=== PATIENT | male | born 1970 | race Caucasian/White ===

== ENCOUNTER → 2022-07-10 | Outpatient (CLI) | payer SELFPAY, OTHER ==
--- NOTE | 2022-07-10 13:55 | ECHODONC_ITS ---
Reason For Study: Diffuse large B-cell lymphoma Procedure This was a 2D Doppler, Color Flow transthoracic echocardiogram. Myocardial strain analysis was performed in this exam to aid in the assessment of cardiac function. Exam performed in department. Left Ventricle Normal size and thickness. Left ventricular systolic function is hyperdynamic. The left ventricular ejection fraction is 70 %. Normal diastology for age. The global longitudinal strain = -20.6 % (normal). Right Ventricle Normal right ventricle. Atria The left and right atria are normal. Mitral Valve The mitral valve is structurally normal. No prolapse or stenosis seen. Tricuspid Valve Trivial tricuspid valve insufficiency. Unable to estimate RV systolic pressure due to insufficient tricuspid regurgitant envelope. Aortic Valve Normal aortic valve. Pulmonic Valve The pulmonic valve is not well visualized. Great Vessels Normal sized aortic root. Pericardium/Pleural No pericardial effusion. MMode/2D Measurements & Calculations LVIDd: 3.9 cm IVSd: 0.97 cm Ao root diam: 3.5 cm LVIDs: 2.7 cm LVPWd: 1.1 cm RVDd: 3.6 cm FS: 32.2 % LAV(MOD-bp): 67.0 ml LA A4 area: 18.1 cm2 LA dimension(2D): 3.5 cm LAV(MOD-bp) Indexed: 31.8 ml/m2 LAV(MOD-sp2): 59.3 ml LAV(MOD-sp4): 59.0 ml RA A4 area: 9.6 cm2 Time Measurements MV dec time: 0.19 sec Doppler Measurements & Calculations MV E max kishan: 94.1 cm/sec Lat Peak E' Kishan: 8.5 cm/sec Med Peak E' Kishan: 10.5 cm/sec MV A max kishan: 83.1 cm/sec E/E' lat: 11.0 E/E' med: 9.0 MV E/A: 1.1 MV dec slope: 490.2 cm/sec2 Ao V2 max: 167.7 cm/sec LV V1 max: 141.7 cm/sec Ao max P.3 mmHg LV V1 max P.0 mmHg Ao V2 mean: 118.4 cm/sec LV V1 mean P.3 mmHg Ao mean P.4 mmHg LV V1 mean: 97.9 cm/sec Ao V2 VTI: 30.3 cm LV V1 VTI: 25.4 cm AV (velocity ratio): 0.84 PA V2 max: 121.4 cm/sec ECHO/ONC Echo Complete Interpretation Summary The left ventricular ejection fraction is 70 %. The global longitudinal strain = -20.6 % (normal). Ordering Physician: Jacek Esteves Referring Physician: Cricket Babcock Performed By: Concetta Crowley RDCS, RVT
== END | disposition home or self-care (01) ==
PROVIDERS: PCP Family Medicine; Referring Provider Internal Medicine Hematology & Oncology; Visit Provider Internal Medicine Hematology & Oncology
DX: C83.33 Diffuse large B-cell lymphoma, intra-abdominal lymph nodes (principal)
CPT/HCPCS: 93306; 93356

== ENCOUNTER → 2022-07-23 | Outpatient (CLI) | payer OTHER, SELFPAY | END | disposition home or self-care (01) | LOC: LABSPEC 17:31 | PROVIDERS: PCP Family Medicine; Visit Provider Pharmacist | DX: C83.33 Diffuse large B-cell lymphoma, intra-abdominal lymph nodes (principal) | CPT/HCPCS: 86850; 86900; 86901; 86920; 86922; P9016 ==

== ENCOUNTER → 2022-07-24 | Outpatient (CLI) | payer OTHER, SELFPAY ==
[2022-07-24 11:36] VITALS: BP 125/70; PULSE 96; RESP 16; TEMP 36.3; O2SAT 100; BMI 25.7
[2022-07-24 12:26] VITALS: BP 121/71; PULSE 87; RESP 16; TEMP 36.7
[2022-07-24 13:26] VITALS: BP 118/84; PULSE 91; RESP 16; TEMP 36.6
[2022-07-24] MEDS: 0.9% NaCl Peripheral Flush Adult/Peds IV (14:09)
[2022-07-24 14:12] VITALS: BP 126/76; PULSE 89; RESP 16; TEMP 36.6
== END | disposition home or self-care (01) ==
LOC: MEDOUTP 11:11
PROVIDERS: PCP Family Medicine; Referring Provider Internal Medicine Hematology & Oncology; Visit Provider Internal Medicine Hematology & Oncology
DX: C83.33 Diffuse large B-cell lymphoma, intra-abdominal lymph nodes (principal)
CPT/HCPCS: 36430; 86850; 86900; 86901; 86920; 86922; J7040; P9016; A4216

== ENCOUNTER 2022-09-25 13:51 | Inpatient (IN) | payer OTHER, SELFPAY ==
[2022-09-25] VITALS (40 sets, daily range): BP systolic 80–124; BP diastolic 44–83; PULSE 107–158; RESP 14–38; TEMP 37.9–40.5; O2SAT 85–98; BMI 27.6; BMI 27.7
--- NOTE | 2022-09-25 14:10 | RAD_ITS ---
EXAM: XR CHEST, 1 VIEW CLINICAL INDICATION: fever TECHNIQUE: Frontal view of the chest. COMPARISON: No relevant prior studies available. FINDINGS: LUNGS AND PLEURAL SPACES: There is bilateral basilar infiltrate / atelectasis. No pneumothorax. No effusion. HEART: Unremarkable. Cardiac silhouette not enlarged. MEDIASTINUM: Central airways and mediastinal contour are unremarkable. BONES/JOINTS: Unremarkable. SOFT TISSUES: Unremarkable. TUBES, LINES AND DEVICES: There is a left Port-A-Cath and/or mediport in place. The tip is in the superior vena caval - atrial junction. RAD/Chest 1 View (Portable) IMPRESSION: There is bilateral basilar infiltrate / atelectasis. Electronically Signed: Rohan Gilliam MD at 15:09 EDT ,
--- NOTE | 2022-09-25 14:10 | EKG12_ITS ---
Test Reason : GENERAL Blood Pressure : / mmHG Vent. Rate : 150 BPM Atrial Rate : 150 BPM P-R Int : 122 ms QRS Dur : 074 ms QT Int : 262 ms P-R-T Axes : 057 052 041 degrees QTc Int : 413 ms Sinus tachycardia Nonspecific ST and T wave abnormality Abnormal ECG Confirmed by IVONNE GALARZA, ANTONY ([id number]), website/blog editor SAMANTHA FOOTE ([id number]) on 09/29/2022 10:14:27 AM Referred By: Confirmed By:ANTONY CORONADO MD
--- NOTE | 2022-09-25 14:12 | CT_ITS ---
STUDY: CT Abdomen And Pelvis W/ Contrast Injection 09/25/2022 4:02 PM REASON FOR EXAM: Male, 52 years old. HX LYMPHOMA,FEVER,N/V/D pain diarrhea, pain Individualized dose optimization techniques were used for this CT. COMPARISON: None. TECHNIQUE: CT Abdomen And Pelvis W/ Contrast Injection IV 100mL Isovue-300 FINDINGS: There are atherosclerotic calcifications of visualized coronary arteries. Diffuse lower lobe pneumonia. There is hepatomegaly with diffuse hepatic enlargement. There is non-visualization of the gallbladder, which may be secondary to either contraction or a prior cholecystectomy. Normal spleen. Normal pancreas. Normal bilateral adrenal glands. No acute findings of the right kidney. Non obstructive 2 mm left renal parenchymal stones. Normal visualized stomach. There are multiple colonic diverticula consistent with diverticulosis. There is non-visualization of the appendix. There are calcifications of the abdominal aorta. This is consistent for atherosclerotic disease. There is NO abdominal aortic aneurysm. Vascular workup can be obtained based on clinical correlation. Normal inferior vena cava. Subcentimeter mesenteric lymph nodes. In a triangular pattern along the course of a branch of the left SMA, there is a soft tissue mass measuring 10.5 x 5.9cm. This is likely related to the patient''s known history of lymphoma. This mass abuts the small bowel where there is overlying wall thickening and inflammation. Neoplastic invasion is not excluded. This is causing a partial small bowel obstruction. There is a Stallings balloon catheter in the urinary bladder. Normal abdominal wall. There are diffuse degenerative changes of the visualized lumbar spine. CT/Abdomen/Pelvis W IV Cont ONLY IMPRESSION: (NOT LISTED IN ORDER OF SIGNIFICANCE) In a triangular pattern along the course of a branch of the left SMA, there is a soft tissue mass measuring 10.5 x 5.9cm. This is likely related to the patient''s known history of lymphoma. This mass abuts the small bowel where there is overlying wall thickening and inflammation. Neoplastic invasion is not excluded. This is causing a partial small bowel obstruction. Diffuse lower lobe pneumonia. Non obstructive 2 mm left renal parenchymal stones. There is hepatomegaly with diffuse hepatic enlargement. Other findings as above. Electronically Signed: Rohan Gilliam MD at 16:09 EDT ,
--- NOTE | 2022-09-25 14:13 | EX.ED.DYSGE1 ---
HPI History of Present Illness Chief Complaint: Nausea/Vomiting/Diarrhea Narrative Narrative: 52-year-old male past medical history of lymphoma diagnosed in June or July, few months ago, finished his fourth round of chemotherapy last week. She sees Dr. Jacek Esteves has his oncologist. They present today because he had a fever. He has been weak and dehydrated all week with multiple episodes of nonbloody diarrhea. He complains of diffuse abdominal pain as well. His states that he had 1 episode of vomiting today and they were unsure if he had aspirated because he was so weak. His emesis was nonbloody, however he developed a fever today. It was as high as 102. They state that they were told that if he ever develops a fever that they should come straight to the emergency department so he was not given any antipyretics. Patient complains of generalized weakness, abdominal pain, and diarrhea along with a fever. [facility] Medical History (Updated 09/25/22 @ 21:26 by Basim Torres MD) Lymphoma Home Medications acyclovir 400 mg tablet 400 mg PO BID 09/25/22 [History Last Taken Unknown] allopurinol 300 mg tablet 300 mg PO DAILY 09/25/22 [History Last Taken Unknown] dexamethasone 4 mg tablet 4 mg PO DAILY 09/25/22 [History Last Taken Unknown] olanzapine 10 mg tablet 10 mg PO QHS 09/25/22 [History Last Taken Unknown] prochlorperazine maleate 10 mg tablet 10 mg PO Q6H PRN Nausea 09/25/22 [History Last Taken Unknown] Allergy/AdvReac Type Severity Reaction Status Date / Time No Known Allergies Allergy Verified 07/24/22 11:34 Social History Smoking Status: Never smoker ROS ROS ED ROS Narrative Constitutional: Positive fever, no chills. Generalized weakness. HEENT: No sore throat. No neck pain. No loss of vision. No rhinorrhea. Cardiovascular: No chest pain. No palpitations. No pedal edema. Respiratory: No cough, no shortness of breath. Abdominal: Diffuse abdominal pain. Nausea and vomiting today. 1 week of diarrhea, nonbloody. Genitourinary: No dysuria. No hematuria. Musculoskeletal: No myalgias. No arthralgias. Neurologic: No headaches. No dizziness. No lightheadedness. Skin: No rash. No change in color. Psychiatric: No depression. No anxiety. EXAM Physical Exam Narrative Exam Narrative: Temperature 103.6 ?F, vital signs noted. HEENT: Normocephalic. Atraumatic. PERRL, EOMI. Neck soft and supple. No point tenderness or step off. Tacky to dry mucous membranes. Cardiovascular: Positive tachycardia. No murmurs, rubs, or gallops appreciated. Respiratory: No tachypnea. Lungs clear to auscultation bilaterally. Gastrointestinal: Abdomen soft, diffuse tenderness to palpation with normoactive bowel sounds. No rebound or guarding. Neurological: Awake. Alert. Nonfocal, nonlateralizing. Skin: No rash. Normal color. No pallor. Musculoskeletal: No pedal edema. Full range of motion extremities. Const Vital Signs: 09/25/22 13:53 09/25/22 14:37 09/25/22 14:47 Temperature 103.6 F H 104.1 F H Temperature Source Temporal Oral Pulse Rate 158 H 147 H Respiratory Rate 14 18 Blood Pressure 93/44 L 108/61 Blood Pressure Mean 60 76 Blood Pressure Source Pulse Ox 98 86 90 Oxygen Delivery Method Room Air Room Air Nasal Cannula Oxygen Flow Rate (L/min) 4 09/25/22 14:53 09/25/22 15:18 09/25/22 16:00 Temperature 104.9 F H 104.8 F H 104 F H Temperature Source Core Core Core Pulse Rate 130 H 125 H 128 H Respiratory Rate 24 H 21 H 31 H Blood Pressure 114/53 L 118/73 111/72 Blood Pressure Mean 73 88 85 Blood Pressure Source Pulse Ox 94 98 95 Oxygen Delivery Method Nasal Cannula Nasal Cannula Nasal Cannula Oxygen Flow Rate (L/min) 4 4 2 09/25/22 16:25 09/25/22 17:00 09/25/22 17:16 Temperature 103.8 F H 103.5 F H 103.2 F H Temperature Source Core Core Core Pulse Rate 129 H Respiratory Rate 38 H Blood Pressure 91/51 L Blood Pressure Mean 64 Blood Pressure Source Pulse Ox 93 86 Oxygen Delivery Method Room Air Nasal Cannula Oxygen Flow Rate (L/min) 2 09/25/22 17:18 09/25/22 17:21 09/25/22 17:56 Temperature 103.2 F H Temperature Source Core Pulse Rate 134 H Respiratory Rate 24 H Blood Pressure 90/52 L Blood Pressure Mean 64 Blood Pressure Source Pulse Ox 88 91 94 Oxygen Delivery Method Nasal Cannula Nasal Cannula Nasal Cannula Oxygen Flow Rate (L/min) 4 5 5 09/25/22 18:00 09/25/22 18:14 09/25/22 18:23 Temperature 102.8 F H 102.7 F H Temperature Source Core Core Pulse Rate 130 H 127 H 125 H Respiratory Rate 24 H 25 H 26 H Blood Pressure 80/58 L 87/58 L 80/53 L Blood Pressure Mean 65 67 62 Blood Pressure Source Monitor Monitor Pulse Ox 94 92 91 Oxygen Delivery Method Nasal Cannula Nasal Cannula Nasal Cannula Oxygen Flow Rate (L/min) 5 4 4 09/25/22 18:27 09/25/22 18:30 09/25/22 18:42 Temperature 102.7 F H 102.7 F H 102.6 F H Temperature Source Core Core Core Pulse Rate 125 H 123 H 119 H Respiratory Rate 26 H 26 H 27 H Blood Pressure 86/59 L 84/63 L 90/66 Blood Pressure Mean 68 70 74 Blood Pressure Source Monitor Pulse Ox 93 92 93 Oxygen Delivery Method Nasal Cannula Nasal Cannula Nasal Cannula Oxygen Flow Rate (L/min) 5 5 09/25/22 18:45 Temperature Temperature Source Pulse Rate Respiratory Rate Blood Pressure 94/67 Blood Pressure Mean 76 Blood Pressure Source Pulse Ox Oxygen Delivery Method Oxygen Flow Rate (L/min) Sepsis Attestation Sepsis Alert: Yes Sepsis Attestation: Agree w/Sepsis Date exam was performed: 09/25/22 Time exam was performed: 15:25 Possible Source of Sepsis: Pulmonary and GI tract/intra-abdominal Sepsis Organ Dysfunction Criteria Present: SBP decrease of more than 40 mmHg and Lactic Acid > 2 mmol/L Fluid Resuscitation Fluid resuscitation indicated?: Yes Fluid Resuscitation ordered: 30 ml/kg fluid bolus ordered Amount of fluid ordered: 3,000 Sepsis Note Date exam was performed: 09/25/22 Sepsis Attestation: Sepsis re-evaluation was performed Response to fluids: Non Fluid responsive hypotension (Initially was fluid responsive) and Vasopressors started MDM MDM MDM Narrative Medical decision making narrative: Given the patient's fever and tachycardia, concern is for aspiration pneumonia, and he may have a neutropenic fever. It may be an intra abdominal source of infection for his sepsis as he is having diarrhea and diffuse abdominal pain. He was started on IV fluids immediately as he was mildly hypotensive at 93/44. Sepsis work-up was pursued. I do feel CT imaging of the abdomen is indicated, whether or not it could be with contrast will be dependent on his creatinine and GFR. He will be administered Tylenol for his fever. Blood cultures will be obtained. Initially, he was given Tylenol for his fever. His blood pressure did improve after first bolus of IV fluids. I reviewed his laboratory work and he is severely neutropenic at 0.1 WBC count, hemoglobin stable at 11.1, hematocrit 33.7. Platelet count slightly low at 145 which I think is secondary to chemotherapy. Coagulation studies are negative with an INR of 1.0 and a PTT of 26. Electrolyte panel shows him to be dehydrated with a BUN of 25 and a creatinine of 1.47. I do feel this may be more of an acute kidney injury but there are no prior labs with which to compare. AST and ALT are normal. Lactic acid is elevated at 5.0. Urinalysis is negative for infection. Chest x-ray interpreted by myself shows bilateral atelectasis versus pneumonia. I do feel that this may be a source of his infection, while it may be aspiration, with his fever, he will be started on sepsis antibiotics in the form of vancomycin and Zosyn. Patient was given a total of 30 mL/kg of IV fluids. He was given additional IV fluids and had tenuous blood pressure, dipping as low as the 80s systolic, but he was still mentating. He was sitting up and stating that he felt improved. He will be started on Levophed as he has been given the maximal amount of IV fluids. I reviewed the CT report for the CT of the abdomen pelvis which did show a soft tissue mass near the SMA that was mildly compressing a section of small bowel and may have a neoplastic infiltration into the small bowel causing partial small bowel obstruction. I discussed patient initially with Dr. Nowak with hospitalist medicine. I also discussed patient with Dr. Vargas with general surgery who states that no surgical intervention was needed at this time emergently as the patient only has a partial bowel obstruction and there is material passing the small bowel. Patient will be admitted to the ICU for septic shock. He is in guarded condition. Critical care time is 37 minutes. Disposition is admit. History & Record Review Discussion w/independent historian: Patient and Family Additional record(s) reviewed:: Prior outpatient record Lab Data Attestation: I reviewed the patient's lab results. Labs: Laboratory Results - last 24 hr 09/25/22 09/25/22 09/25/22 14:30 14:30 14:30 WBC 0.1 L* RBC 3.97 L Hgb 11.1 L Hct 33.7 L MCV 84.9 MCH 28.0 MCHC 32.9 RDW Std Deviation 55.5 H RDW Coeff of Olesya 17.9 H Plt Count 145 L MPV 10.2 Immature Gran % (Auto) 16.700 H Neut % (Auto) 16.7 L Lymph % (Auto) 58.3 H [place] % (Auto) 8.3 Eos % (Auto) 0.0 Baso % (Auto) 0.0 Absolute Neuts (auto) 0.0 L Absolute Lymphs (auto) 0.07 L Nucleated RBC % 0 Differential Comment COMMENT Diff Path Review May foll PT 13.7 INR 1.0 APTT 26.0 Sodium 138 Potassium 3.8 Chloride 107 Carbon Dioxide 22.0 Anion Gap 9 BUN 25 H Creatinine 1.47 H Estim Creat Clear Calc 66.43 Est GFR (MDRD) Af Amer 65 Est GFR (MDRD) Non-Af 53 L BUN/Creatinine Ratio 17.0 Glucose 111 H Lactic Acid Calcium 8.8 Total Bilirubin 2.00 H AST 21 ALT 29 Alkaline Phosphatase 82 Troponin I High Sens 57 Total Protein 6.5 Albumin 3.3 Globulin 3.2 Albumin/Globulin Ratio 1.0 Urine Color Urine Clarity Urine pH Ur Specific [place]ard Urine Protein Urine Glucose (UA) Urine Ketones Urine Occult Blood Urine Nitrite Urine Bilirubin Urine Urobilinogen Ur Leukocyte Esterase Urine RBC Urine WBC Ur Squamous Epith Cells Urine Bacteria Urine Mucus 09/25/22 09/25/22 14:30 14:45 WBC RBC Hgb Hct MCV MCH MCHC RDW Std Deviation RDW Coeff of Olesya Plt Count MPV Immature Gran % (Auto) Neut % (Auto) Lymph % (Auto) [place] % (Auto) Eos % (Auto) Baso % (Auto) Absolute Neuts (auto) Absolute Lymphs (auto) Nucleated RBC % Differential Comment Diff Path Review PT INR APTT Sodium Potassium Chloride Carbon Dioxide Anion Gap BUN Creatinine Estim Creat Clear Calc Est GFR (MDRD) Af Amer Est GFR (MDRD) Non-Af BUN/Creatinine Ratio Glucose Lactic Acid 5.0 H* Calcium Total Bilirubin AST ALT Alkaline Phosphatase Troponin I High Sens Total Protein Albumin Globulin Albumin/Globulin Ratio Urine Color Yellow Urine Clarity Clear Urine pH 5.0 Ur Specific Maynard 1.020 Urine Protein 30 H Urine Glucose (UA) Normal Urine Ketones 5 H Urine Occult Blood 10 H Urine Nitrite Negative Urine Bilirubin Negative Urine Urobilinogen Normal Ur Leukocyte Esterase 25 H Urine RBC 0-5 SEEN Urine WBC 0-5 SEEN Ur Squamous Epith Cells 0-5 SEEN Urine Bacteria 0 SEEN Urine Mucus 0 SEEN Radiography Diagnostic Testing: Clinical Impression(s) from Imaging Studies Chest X-Ray 09/25/22 14:10 IMPRESSION: There is bilateral basilar infiltrate / atelectasis. Electronically Signed: Rohan Gilliam MD at 15:09 EDT , Abdomen/Pelvis CT 09/25/22 14:12 IMPRESSION: (NOT LISTED IN ORDER OF SIGNIFICANCE) In a triangular pattern along the course of a branch of the left SMA, there is a soft tissue mass measuring 10.5 x 5.9cm. This is likely related to the patient''s known history of lymphoma. This mass abuts the small bowel where there is overlying wall thickening and inflammation. Neoplastic invasion is not excluded. This is causing a partial small bowel obstruction. Diffuse lower lobe pneumonia. Non obstructive 2 mm left renal parenchymal stones. There is hepatomegaly with diffuse hepatic enlargement. Other findings as above. Electronically Signed: Rohan Gilliam MD at 16:09 EDT , Critical Care Time Critical Care Time: Yes Critical care time (excluding procedures): 30-74 minutes (37), Including time spent:, Discussing w/Patient &/or Family/Inside Barrel Lathe Operator, Discussing w/Consultants, Arranging Admission or Transfer and Performing Direct Patient Care at Bedside Discharge Plan Dx/Rx/DC Orders Clinical Impression: Septic shock, Pneumonia, Neutropenic fever, Lymphoma Disposition Disposition: Acute Care Hospital [facility] Discharge Date/Time: 09/25/22 19:45
[2022-09-25] MEDS: 0.9% Normal Saline 1,000 ML 999 ML IV ×5 (14:36→21:07)
[2022-09-25] MEDS: Acetaminophen 500 MG Tablet 1000 MG PO (14:36)
[2022-09-25 14:53] LABS: Bacteria 0 SEEN /hpf (None Seen); Mucous, Urine 0 SEEN /hpf (<or=2+)
[2022-09-25 14:56] LABS: Color, Urine Yellow (Yellow); Glucose, Dipstick Normal (Normal); Ketone-Dipstick 5 mg/dl (Negative); Leukocyte Esterase-Dipstick 25 /ul (Negative); Nitrite-Dipstick Negative (Negative); Occult Blood-Urine 10 /ul (Negative); Protein-Dipstick 30 mg/dl (Negative); Urine Bilirubin Dipstick Negative (Negative); Urine Clarity Clear (Clear); Urine Urobilinogen Normal (Normal)
[2022-09-25 14:58] LABS: Absolute Lymphocyte Count 0.07 X10^3/uL (0.83-4.51); Hematocrit 33.7 % (40-54); Hemoglobin 11.1 g/dL (13.0-16.5); Lymphocyte # 0.07 X10^3/ul (0.83-4.51); Lymphocyte % 58.3 % (19-41); Mean Corp Hgb Conc 32.9 g/dL (32-36); Mean Corpuscular Volume 84.9 fL (80-94); Mean Platelet Vol. 10.2 fl (6.2-12.0); Monocyte# 0.01 X10^3/uL; Monocyte% 8.3 % (0-10); NRBC Flagged by Analyzer 0 % (0-5); Neutrophil # 0.02 X10^3/uL (2.7-7.7); Neutrophil % 16.7 % (47-70); POSITIVE COUNT YES; POSITIVE DIFFERENTIAL YES; POSITIVE MORPHOLOGY YES; Platelet Count 145 K/mm3 (150-450); RBC Distribution Width CV 17.9 % (11.6-14.6); RBC Distribution Width SD 55.5 fl (35.1-43.9); Red Blood Count 3.97 M/mm3 (4.6-6.2)
[2022-09-25 15:01] LABS: White Blood Count 0.1 K/mm3 (4.4-11.0)
[2022-09-25 15:02] LABS: Differential Indicated SCAN CRITERIA MET
[2022-09-25 15:02] LABS: Red Blood Cells-Urine 0-5 SEEN /hpf (0-5); Squamous Epithelial Cells - UA 0-5 SEEN /hpf (0-5); White Blood Cells 0-5 SEEN /hpf (0-5)
[2022-09-25 15:05] LABS: Prothrombin Time (Protime)PT. 13.7 SECONDS (11.7-14.9)
[2022-09-25 15:13] LABS: AST(SGOT) 21 U/L (15-37); Alanine Aminotransfer ALT/SGPT 29 U/L (16-61); Albumin, Serum 3.3 g/dL (3.2-5.0); Alkaline Phosphatase 82 U/L (45-117); Anion Gap 9 (5-15); BUN 25 mg/dL (7-18); Calcium,Total 8.8 mg/dL (8.5-10.1); Chloride 107 mmol/L (98-107); Creatinine, Serum 1.47 mg/dL (0.70-1.30); EST Glomerular Filtration Rate 53 mL/min (>60); Est Glom Filt Rate - Afr Amer 65 mL/min (>60); Estimated Creatinine Clearance 66.43 ml/min; Globulin 3.2 g/dL (2.2-4.2); Glucose 111 mg/dL (74-106); Potassium 3.8 mmol/L (3.5-5.1); Protein, Total 6.5 g/dL (6.4-8.2); Sodium Level 138 mmol/L (136-145); Troponin-I HS 57 pg/mL (3.0-78.0)
--- NOTE | 2022-09-25 17:04 | ED.RN ---
per provider, pt is to only receive a total of 3000cc of NS.
--- NOTE | 2022-09-25 17:15 | ED.RN ---
since previous note, provider added another liter. total of 4000cc NS.
--- NOTE | 2022-09-25 17:24 | ED.RN ---
PROVIDER AWARE OF VITALS.
[2022-09-25] MEDS: Ketorolac 30 MG/ML Syringe IV (18:41)
[2022-09-25 18:48] LABS: Reflex Lactate? Y
--- NOTE | 2022-09-25 18:48 | NURSING ---
ICU TERELETSKY SEPTIC SHOCK
--- NOTE | 2022-09-25 19:09 | NURSING ---
ICU 2
[2022-09-25] MEDS: Albuterol 2.5 MG/3 ML VIAL.NEB. INHALATION (19:55)
--- NOTE | 2022-09-25 20:02 | HP.PCM.HOS_ITS ---
HPI - General General Date of Admission: 09/25/22 Date of Service: 09/25/22 Chief Complaint: Elevated temperature, chills, nausea/vomiting/diarrhea HPI Narrative NESTOR LANG, is a 52 M who presents to the emergency room at [facility] with complaints of nausea, vomiting, and diarrhea over the last several days, patient complained of severe weakness and elevated temperature. Patient developed a fever today that was as high as 102 at home and he came to the emergency room for evaluation. Patient is being treated for a B-cell lymphoma and had his last chemotherapy approximately a week ago, he was given Neulasta after the chemotherapy. Evaluation of the patient in the emergency room included labs which showed the patient to be neutropenic with a white count below 100 neutrophils, hemoglobin was 11.1 and platelet count was 145,000. Patient's creatinine was elevated at 1.47 BUN was 25. Patient's bilirubin was 2, and lactic acid was 5. Patient's urinalysis was unremarkable. A abdomen and pelvis CT was performed which showed a mass measuring 10.5 x 5.9 cm along the course of a branch of the left SMA, the mass abuts up against small bowel, there is a question about a partial small bowel obstruction, general surgery was contacted and reviewed the films and does not feel the patient has a small bowel obstruction. Patient's CAT scan also showed what appeared to be a diffuse lower lobe pneumonia. Patient's chest x- ray showed a bilateral basilar infiltrate. It is unknown whether these areas are atelectasis or pneumonia. Patient's blood pressure was low in the emergency room, he was given fluid bolus of normal saline and Levophed was started, he was also given IV Zosyn and vancomycin. Patient will be admitted to ICU for septic shock and pneumonia, IV antibiotics will be continued, IV fluids will be continued and pressor agents will be continued. Patient will be seen by critical care tomorrow, I notified Dr. Martin of the admission tonight. [facility] [place] Medical History (Updated 09/25/22 @ 20:[address] Wally Nowak, ) Lymphoma Home Medications acyclovir 400 mg tablet 400 mg PO BID 09/25/22 [History Last Taken Unknown] allopurinol 300 mg tablet 300 mg PO DAILY 09/25/22 [History Last Taken Unknown] dexamethasone 4 mg tablet 4 mg PO DAILY 09/25/22 [History Last Taken Unknown] olanzapine 10 mg tablet 10 mg PO QHS 09/25/22 [History Last Taken Unknown] prochlorperazine maleate 10 mg tablet 10 mg PO Q6H PRN Nausea 09/25/22 [History Last Taken Unknown] Allergy/AdvReac Type Severity Reaction Status Date / Time No Known Allergies Allergy Verified 07/24/22 11:34 Social History Smoking Status: Never smoker ROS Constitutional Constitutional: Reports chills, fatigue, fever(s), malaise and weakness; Denies anorexia, change in weight or night sweats Eyes Eyes: Denies blurry vision, change in eye color, change in vision, discharge from eye(s) or eye pain ENT HEENT: Denies dysphagia, epistaxis or headache(s) Cardiovascular Cardiovascular: Denies chest pain, claudication, dyspnea on exertion, edema, lightheadedness or palpitations Respiratory/Chest Respiratory/Chest: Denies cough, dyspnea, hemoptysis, productive cough, shortness of breath at rest, shortness of breath with exertion or wheezing Gastrointestinal Gastrointestinal: Reports diarrhea, nausea and vomiting; Denies abdominal pain, constipation, hematemesis, hematochezia or melena Genitourinary Genitourinary: Denies dysuria, hematuria, urinary frequency, urinary hesitancy, urinary incontinence or urinary urgency Musculoskeletal Musculoskeletal: Denies back pain, joint pain, joint stiffness, joint swelling, myalgias or neck pain Neurologic Neurologic: Denies abnormal gait, abnormal speech, confusion, disequilibrium, dizziness, focal weakness, headache(s), loss of vision, numbness, other visual disturbances, paresthesias, syncope or tingling Psychiatric Psychiatric: Denies anxiety, cognitive impairment, depression, irritability, mood swings or suicidal ideation Endocrine Endocrinology: Denies change in body appearance, cold intolerance, excessive sweating, heat intolerance, polydipsia or polyuria Hematologic/Lymphatic Hematologic/Lymphatic: Reports other Details: Patient has a history of B-cell lymphoma which was diagnosed in June 2022, he is currently on chemotherapy since July 2022 ; Denies none, anemia, easy bleeding, easy bruising or lymphadenopathy Allergic/Immunologic Allergic/Immunologic: Denies rhinitis, urticaria, eczemia or asthma Vital Signs Vital Signs Vital Signs: 09/25/22 13:53 09/25/22 14:37 09/25/22 14:47 Temperature 103.6 F H 104.1 F H Temperature Source Temporal Oral Pulse Rate 158 H 147 H Respiratory Rate 14 18 Blood Pressure 93/44 L 108/61 Blood Pressure Mean 60 76 Blood Pressure Source Pulse Ox 98 86 90 Oxygen Delivery Method Room Air Room Air Nasal Cannula Oxygen Flow Rate (L/min) 4 09/25/22 14:53 09/25/22 15:18 09/25/22 16:00 Temperature 104.9 F H 104.8 F H 104 F H Temperature Source Core Core Core Pulse Rate 130 H 125 H 128 H Respiratory Rate 24 H 21 H 31 H Blood Pressure 114/53 L 118/73 111/72 Blood Pressure Mean 73 88 85 Blood Pressure Source Pulse Ox 94 98 95 Oxygen Delivery Method Nasal Cannula Nasal Cannula Nasal Cannula Oxygen Flow Rate (L/min) 4 4 2 09/25/22 16:25 09/25/22 17:00 09/25/22 17:16 Temperature 103.8 F H 103.5 F H 103.2 F H Temperature Source Core Core Core Pulse Rate 129 H Respiratory Rate 38 H Blood Pressure 91/51 L Blood Pressure Mean 64 Blood Pressure Source Pulse Ox 93 86 Oxygen Delivery Method Room Air Nasal Cannula Oxygen Flow Rate (L/min) 2 09/25/22 17:18 09/25/22 17:21 09/25/22 17:56 Temperature 103.2 F H Temperature Source Core Pulse Rate 134 H Respiratory Rate 24 H Blood Pressure 90/52 L Blood Pressure Mean 64 Blood Pressure Source Pulse Ox 88 91 94 Oxygen Delivery Method Nasal Cannula Nasal Cannula Nasal Cannula Oxygen Flow Rate (L/min) 4 5 5 09/25/22 18:00 09/25/22 18:14 09/25/22 18:23 Temperature 102.8 F H 102.7 F H Temperature Source Core Core Pulse Rate 130 H 127 H 125 H Respiratory Rate 24 H 25 H 26 H Blood Pressure 80/58 L 87/58 L 80/53 L Blood Pressure Mean 65 67 62 Blood Pressure Source Monitor Monitor Pulse Ox 94 92 91 Oxygen Delivery Method Nasal Cannula Nasal Cannula Nasal Cannula Oxygen Flow Rate (L/min) 5 4 4 09/25/22 18:27 09/25/22 18:30 09/25/22 18:42 Temperature 102.7 F H 102.7 F H 102.6 F H Temperature Source Core Core Core Pulse Rate 125 H 123 H 119 H Respiratory Rate 26 H 26 H 27 H Blood Pressure 86/59 L 84/63 L 90/66 Blood Pressure Mean 68 70 74 Blood Pressure Source Monitor Pulse Ox 93 92 93 Oxygen Delivery Method Nasal Cannula Nasal Cannula Nasal Cannula Oxygen Flow Rate (L/min) 5 5 09/25/22 18:45 09/25/22 18:51 09/25/22 18:51 Temperature 102.6 F H Temperature Source Core Pulse Rate 120 H Respiratory Rate 34 H Blood Pressure 94/67 96/62 96/62 Blood Pressure Mean 76 73 73 Blood Pressure Source Monitor Pulse Ox 94 Oxygen Delivery Method Nasal Cannula Oxygen Flow Rate (L/min) 5 09/25/22 19:00 09/25/22 19:06 Temperature 102.5 F H Temperature Source Core Pulse Rate 120 H Respiratory Rate 18 Blood Pressure 98/63 Blood Pressure Mean 74 Blood Pressure Source Pulse Ox 85 92 Oxygen Delivery Method Nasal Cannula Non-Rebreather Oxygen Flow Rate (L/min) 6 Weight Weight: 95.1 kg Body Mass Index (BMI) 27.6 Physical Exam Const alert and oriented x3 Constitutional Narrative: Patient appears mildly diaphoretic and unwell General Appearance: cooperative, well kempt and well developed Orientation / Consciousness: awake, oriented to person, oriented to place and oriented to time HEENT normocephalic, head/scalp atraumatic, hearing grossly normal bilaterally and moist oral mucous membranes Eyes PERRL, EOMs intact bilaterally and conjunctivae normal Neck supple, no JVD, thyroid normal and no carotid bruits General: trachea midline Resp Resp Narrative: Breath sounds are distant bilaterally, patient's respiratory rate is elevated, respirations are somewhat shallow Auscultation: Negative for rales, rhonchi or wheezes Cardio regular rate, regular rhythm, S1 normal heart sound, S2 normal heart sound, no murmurs, no rub and no gallops GI normal to inspection, nondistended, normoactive bowel sounds, soft to palpation, non-tender and non-distended Extremity no clubbing, cyanosis or edema Skin no rashes or lesions noted General Skin Exam: no breakdown Neuro oriented x3, CN's II-XII intact bilaterally, moves all extremities, no focal motor deficits and no sensory deficits noted Sensorium / Orientation: awake and alert Speech: speech normal Psych affect normal Results Lab / Micro Data Result Diagrams: 09/25/22 14:30 09/25/22 14:30 Labs: Laboratory Results - last 24 hr 09/25/22 14:30: WBC 0.1 L*, RBC 3.97 L, Hgb 11.1 L, Hct 33.7 L, MCV 84.9, MCH 28.0, MCHC 32.9, RDW Std Deviation 55.5 H, RDW Coeff of [place] 17.9 H, Plt Count 145 L, MPV 10.2, Immature Gran % (Auto) 16.700 H, Neut % (Auto) 16.7 L, Lymph % (Auto) 58.3 H, [place] % (Auto) 8.3, Eos % (Auto) 0.0, Baso % (Auto) 0.0, Absolute Neuts (auto) 0.0 L, Absolute Lymphs (auto) 0.07 L, Nucleated RBC % 0, Differential Comment COMMENT, Diff Path Review August09/25/22 14:30: PT 13.7, INR 1.0, APTT 26.0 09/25/22 14:30: Sodium 138, Potassium 3.8, Chloride 107, Carbon Dioxide 22.0, Anion Gap 9, BUN 25 H, Creatinine 1.47 H, Estim Creat Clear Calc 66.43, Est GFR (MDRD) Af Amer 65, Est GFR (MDRD) Non-Af 53 L, BUN/Creatinine Ratio 17.0, Glucose 111 H, Calcium 8.8, Total Bilirubin 2.00 H, AST 21, ALT 29, Alkaline Phosphatase 82, Troponin I High Sens 57, Total Protein 6.5, Albumin 3.3, Globulin 3.2, Albumin/Globulin Ratio 1.0 09/25/22 14:30: Lactic Acid 5.0 H* 09/25/22 14:45: Urine Color Yellow, Urine Clarity Clear, Urine pH 5.0, Ur Specific [place] 1.020, Urine Protein 30 H, Urine Glucose (UA) Normal, Urine Ketones 5 H, Urine Occult Blood 10 H, Urine Nitrite Negative, Urine Bilirubin Negative, Urine Urobilinogen Normal, Ur Leukocyte Esterase 25 H, Urine RBC 0-5 SEEN, Urine WBC 0-5 SEEN, Ur Squamous Epith Cells 0-5 SEEN, Urine Bacteria 0 SEEN, Urine Mucus 0 SEEN Micro: Microbiology 09/25/22 15:37 Nasal Secretion SARS-CoV-2 & FLU Antigen (Rapid) - Final Radiology Impression Chest X-Ray 09/25/22 14:10 IMPRESSION: There is bilateral basilar infiltrate / atelectasis. Electronically Signed: Rohan Gilliam MD at 15:09 EDT , Abdomen/Pelvis CT 09/25/22 14:12 IMPRESSION: (NOT LISTED IN ORDER OF SIGNIFICANCE) In a triangular pattern along the course of a branch of the left SMA, there is a soft tissue mass measuring 10.5 x 5.9cm. This is likely related to the patient''s known history of lymphoma. This mass abuts the small bowel where there is overlying wall thickening and inflammation. Neoplastic invasion is not excluded. This is causing a partial small bowel obstruction. Diffuse lower lobe pneumonia. Non obstructive 2 mm left renal parenchymal stones. There is hepatomegaly with diffuse hepatic enlargement. Other findings as above. Electronically Signed: Rohan Gilliam MD at 16:09 EDT , Assessment & Plan Assessment/Plan (1) Pneumonia: PLAN: Plan 1. Septic shock-etiology unclear, possibly secondary to community-acquired pneumonia, patient will be admitted to ICU, he is currently on pressors and IV fluids, he is being treated with Zosyn and vancomycin, aerosol treatments were ordered, critical care will see the patient tomorrow, he will receive subcu Granix (I talked with Dr. Esteves his oncologist-this was recommended) #2 bilateral lower lobe pneumonia-again patient is on Zosyn and vancomycin, he will receive aerosol treatments #3 neutropenia-patient will be given Granix, complicates care, medical course, recovery and prognosis, labs will be monitored #4 B-cell lymphoma-again patient had his last chemotherapy session last week #5 nausea/vomiting/diarrhea-etiology unclear at this point, labs will be monitored, patient will be given IV fluids, patient was placed on full liquid diet #6 hypoxia secondary to septic shock and pneumonia, patient's pulse ox will be monitored, supplemental oxygen will be administered Total clinical time spent by myself addressing the patient's medical issues, reviewing all of the data, and collaborating with patient's care team: 75 minutes Charges/Coding Visit Charges Inpatient E&M: 37639 Init Hosp L3
[2022-09-25 20:11] LABS: Lactic Acid 2.8 mmol/L (0.4-1.9)
[2022-09-25 20:14] LABS: Allen Test Negative; Base Excess -5 mmol/L (-2 to +2); Blood Gas Specimen Type ART; FI02 100; O2 Delivery Device NRB; PO2 84 mmHG (75-100); SITE R Radial; SO2 97 % (95-99); Total Carbon Dioxide 20 mmol/L; pCO2 26.4 mmHg (35-45); pH 7.47 (7.35-7.45)
[2022-09-25] MEDS: 0.9% Normal Saline 1,000 ML 150 ML IV (20:24)
[2022-09-25] MEDS: Acyclovir 200 MG Capsule 400 MG PO (21:16)
[2022-09-25] MEDS: TBO-FILGRASTIM 480 MCG/0.8 ML ML SC (21:17)
[2022-09-25] MEDS: Heparin Injection (Vial) 5,000 UNIT/ML VIAL 5000 UNIT SC (21:17)
--- NOTE | 2022-09-25 22:35 | PCM.RX.CS ---
Consult Pharmacy has been consulted to manage selected antiobiotic: Vancomycin Type of Consult: New start Suspected Infection: Sepsis, Pneumonia Prior Doses of Antibiotics Received/Current Regimen: Medications Vancomycin HCl 1,250 mg/ (Sodium Chloride) 275 mls @ 167 mls/hr IV Q12H HENRIK Discontinued Medications Vancomycin HCl 2,000 mg/ (Sodium Chloride) 540 mls @ 250 mls/hr IV X1 ONE Stop: 09/25/22 17:32 Last Admin: 09/25/22 18:22 Dose: Infused Labs: Sodium 138 mmol/L (136-145) 09/25/22 14:30 Potassium 3.8 mmol/L (3.5-5.1) 09/25/22 14:30 Chloride 107 mmol/L (98-107) 09/25/22 14:30 Carbon Dioxide 22.0 mmol/L (21.0-32.0) 09/25/22 14:30 Anion Gap 9 (5-15) 09/25/22 14:30 BUN 25 mg/dL (7-18) H 09/25/22 14:30 Creatinine 1.47 mg/dL (0.70-1.30) H 09/25/22 14:30 Est GFR (MDRD) Af Amer 65 mL/min (>60) 09/25/22 14:30 Est GFR (MDRD) Non-Af 53 mL/min (>60) L 09/25/22 14:30 BUN/Creatinine Ratio 17.0 RATIO (10-20) 09/25/22 14:30 Glucose 111 mg/dL (74-106) H 09/25/22 14:30 Microbiology: Microbiology 09/25/22 15:37 Nasal Secretion SARS-CoV-2 & FLU Antigen (Rapid) - Final Weight used for dosin.7 kg Estimated Creatinine Clearance: 66 Goal Trough: 15-20 mcg/mL Pharmacy Plan for Drug Dosing: Pharmacy Service will continue to monitor and adjust dosing as required. Follow-Up Labs: Trough Vancomycin Labs to be done on [date and time ordered]: 09/27/22 @4116
[2022-09-25] MEDS: Acetaminophen 325 MG Tablet 650 MG PO (23:11)
[2022-09-26] VITALS (42 sets, daily range): BP systolic 74–133; BP diastolic 48–83; PULSE 104–128; RESP 16–37; TEMP 37.7–39.5; O2SAT 90–100; BMI 28.0
[2022-09-26] MEDS: Ketorolac 30 MG/ML Syringe IV ×2 (00:53→14:32)
[2022-09-26 03:49] LABS: Absolute Lymphocyte Count 0.03 X10^3/uL (0.83-4.51); Absolute Neutrophil Count 0.1 X10^3/uL (2.0-7.7); Hematocrit 25.8 % (40-54); Hemoglobin 8.4 g/dL (13.0-16.5); Lymphocyte # 0.03 X10^3/ul (0.83-4.51); Mean Corp Hgb Conc 32.6 g/dL (32-36); Mean Corpuscular Hgb 28.2 pg (27.0-32.0); Mean Corpuscular Volume 86.6 fL (80-94); Mean Platelet Vol. 9.4 fl (6.2-12.0); Monocyte# 0.04 X10^3/uL; Monocyte% 26.7 % (0-10); NRBC Flagged by Analyzer 0 % (0-5); Neutrophil # 0.08 X10^3/uL (2.7-7.7); Neutrophil % 53.3 % (47-70); POSITIVE COUNT YES; POSITIVE DIFFERENTIAL YES; POSITIVE MORPHOLOGY YES; Platelet Count 70 K/mm3 (150-450); RBC Distribution Width CV 18.3 % (11.6-14.6); RBC Distribution Width SD 58.6 fl (35.1-43.9); Red Blood Count 2.98 M/mm3 (4.6-6.2)
[2022-09-26 03:53] LABS: Differential Indicated SCAN CRITERIA MET
[2022-09-26 03:55] LABS: White Blood Count 0.2 K/mm3 (4.4-11.0)
[2022-09-26 04:03] LABS: Anisocytosis 1+; Differential Comment SCANNED
[2022-09-26 04:04] LABS: Microcytosis 1+; Ovalocyte 1+; Platelet Estimate MOD DEC (ADEQ)
[2022-09-26 04:09] LABS: AST(SGOT) 15 U/L (15-37); Alanine Aminotransfer ALT/SGPT 20 U/L (16-61); Albumin, Serum 2.3 g/dL (3.2-5.0); Alkaline Phosphatase 40 U/L (45-117); Anion Gap 7 (5-15); BUN 22 mg/dL (7-18); BUN/Creat Ratio 17.3 RATIO (10-20); Calcium,Total 7.3 mg/dL (8.5-10.1); Chloride 116 mmol/L (98-107); Creatinine, Serum 1.27 mg/dL (0.70-1.30); EST Glomerular Filtration Rate 63 mL/min (>60); Est Glom Filt Rate - Afr Amer 76 mL/min (>60); Estimated Creatinine Clearance 76.89 ml/min; Globulin 2.3 g/dL (2.2-4.2); Glucose 118 mg/dL (74-106); Potassium 4.1 mmol/L (3.5-5.1); Protein, Total 4.6 g/dL (6.4-8.2); Sodium Level 144 mmol/L (136-145)
[2022-09-26] MEDS: 0.9% Normal Saline 1,000 ML 150 ML IV ×2 (05:50→11:56)
--- NOTE | 2022-09-26 07:04 | CON.PCM.CC_ITS ---
Assessment & Plan Assessment/Plan (1) Septic shock: (2) Neutropenic fever: (3) Aspiration pneumonia: PLAN: Plan RECOMMENDATIONS: 1. Continue pressors as necessary to maintain MAP greater than 65 2. Add stress dose steroids if worsens or not improved in the next 24 hours given recent Decadron requirements 3. Wean oxygen as tolerated 4. Increase activity as tolerated 5. Symptomatic control of fever IMPRESSIONS: 1. Neutropenic fever secondary to septic shock secondary to aspiration pneumonia Patient is on broad-spectrum antibiotics at this time. Patient is at risk for gram-positive's given aspiration etiology. Patient is currently on Levophed. Patient has received multiple doses of Decadron secondary to ch emotherapy. If patient has not improved in the next 24 hours, the addition of stress dose steroids may be necessary. Patient is on Granix. Would not recommend additional fluid boluses given patient's respiratory status. 2. Acute hypoxic respiratory failure secondary to aspiration pneumonia Patient does not appear to have any respiratory history per his report. Patient does have extensive infiltrates inferiorly suggestive of aspiration on CT of the abdomen. Patient is currently on Airvo. Cannot exclude the need for BiPAP, especially with sleep. Patient did verify that he is a full code. Patient is protecting his airway at this time and doing okay. Mobilization of the patient may help with moving of secretions. If BiPAP is required, would recommend AVAPS with a targeted tidal volume of 500. Cannot exclude the need to go directly to intubation given problem #4, but this would have to be assessed at that time. 3. Neutropenia secondary to chemotherapy secondary to B-cell lymphoma Patient currently on Granix. Patient neutropenic secondary to chemotherapy. Patient is on broad-spectrum antibiotics. We will continue to follow. 4. Nausea/vomiting/diarrhea Unclear if this is chemo induced. 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 Surgery was contacted and no intervention is required. If patient starts to deteriorate this may need to be reevaluated. Patient on full liquids at this time. We will continue to monitor. Patient also has received chemotherapy and may be having some secondary effects. TIME: 40 minutes critical care time spent addressing patient's septic shock, respiratory failure, neutropenia, review of all data and collaboration with care team HPI Consult Data Date of Consult: 09/26/22 HPI Narrative HPI Narrative: NESTOR LANG is a 52 M, with past medical history listed below, who presents to [facility] on 09/25/2022 secondary to nausea, vomiting and diarrhea. Patient was diagnosed with lymphoma in June and started on chemotherapy. Patient completed his fourth round of chemotherapy last week. Patient reportedly had developed some fever and felt weak and dehydrated secondary to multiple episodes of nonbloody diarrhea and diffuse abdominal pain. Patient reportedly had a temperature as high as 102 ?F at home and progressive weakness, so was brought to the ER for evaluation. In the ER, patient was documented to have a temperature as high as 104.9 ?F and was tachycardic at 134 bpm. Patient was hypotensive and requiring up to 5 L nasal cannula to maintain saturations. Laboratory work-up showed a white blood cell count of 0.1, hemoglobin of 11.1 and platelets of 145. Coagulation studies were within normal limits, but creatinine was elevated at 1.47. Total bilirubin was slightly elevated at 2, but other liver enzymes were within normal limits. UA was unremarkable and lactate was elevated at 5. Chest x-ray showed bibasilar infiltrates and this was confirmed by CT of the abdomen and pelvis. Patient reportedly has a soft tissue mass measuring 10.5 x 5.9 and compared to the left SMA. There was some concern for aspiration pneumonia, so the patient was given vancomycin Zosyn and 30 cc/kg fluid boluses. Patient was initiated on Levophed. General surgery was reportedly contacted but did not believe there was any intervention required. Patient subsequently admitted to the intensive care unit for further evaluation. Since being in the intensive care unit, patient has required Levophed to maintain blood pressures. Patient is on a heparin drip and tolerating this well. Patient is reporting significant symptomatology with fevers. Patient is not reporting any current chest pain, but is having intermittent nausea and vomiting. Patient is pretty clear that he did choke while having emesis. Patient does have upper dentures, but states his lower teeth are his and in relatively good condition. Patient does not report previous need for supplemental oxygen and does not carry diagnosis of COPD or asthma. Review of systems otherwise negative from a constitutional, HEENT, respiratory, cardiovascular, GI, genitourinary, musculoskeletal, skin, neurologic, psychiatric and hematologic system unless stated above. [facility] Medical History Lymphoma Home Medications acyclovir 400 mg tablet 400 mg PO BID 09/25/22 [History Last Taken Unknown] allopurinol 300 mg tablet 300 mg PO DAILY 09/25/22 [History Last Taken Unknown] dexamethasone 4 mg tablet 4 mg PO DAILY 09/25/22 [History Last Taken Unknown] olanzapine 10 mg tablet 10 mg PO QHS 09/25/22 [History Last Taken Unknown] prochlorperazine maleate 10 mg tablet 10 mg PO Q6H PRN Nausea 09/25/22 [History Last Taken Unknown] Allergy/AdvReac Type Severity Reaction Status Date / Time No Known Allergies Allergy Verified 07/24/22 11:34 Social History Smoking Status: Never smoker Physical Exam Const alert and oriented x3 Constitutional Narrative: Patient appears mildly diaphoretic and unwell General Appearance: cooperative, well kempt, well developed and ill appearing HEENT normocephalic, head/scalp atraumatic, hearing grossly normal bilaterally and moist oral mucous membranes HEENT Narrative: Upper dentures noted Eyes PERRL, EOMs intact bilaterally and conjunctivae normal Neck supple, no JVD, thyroid normal and no carotid bruits General: trachea midline Resp Auscultation: rhonchi lower bilaterally; Negative for rales or wheezes Cardio regular rhythm, S1 normal heart sound, S2 normal heart sound, no murmurs, no rub and no gallops Rate: tachycardic GI normal to inspection, nondistended, normoactive bowel sounds, soft to palpation, non-tender and non-distended Extremity no clubbing, cyanosis or edema Skin no rashes or lesions noted General Skin Exam: no breakdown Neuro oriented x3, CN's II-XII intact bilaterally, moves all extremities, no focal motor deficits and no sensory deficits noted Psych affect normal Medical Records Data Attestation: I reviewed the patient's medical records Lab / Micro Data Attestation: I reviewed the patient's lab results. Result Diagrams: 09/26/22 03:35 09/26/22 03:35 Labs: Laboratory Results - last 24 hr 09/25/22 14:30: WBC 0.1 L*, RBC 3.97 L, Hgb 11.1 L, Hct 33.7 L, MCV 84.9, MCH 28.0, MCHC 32.9, RDW Std Deviation 55.5 H, RDW Coeff of [place]les[place] 17.9 H, Plt Count 145 L, MPV 10.2, Immature Gran % (Auto) 16.700 H, Neut % (Auto) 16.7 L, Lymph % (Auto) 58.3 H, [place] % (Auto) 8.3, Eos % (Auto) 0.0, Baso % (Auto) 0.0, Absolute Neuts (auto) 0.0 L, Absolute Lymphs (auto) 0.07 L, Nucleated RBC % 0, Differential Comment COMMENT, Diff Path Review August foll 09/25/22 14:30: PT 13.7, INR 1.0, APTT 26.0 09/25/22 14:30: Sodium 138, Potassium 3.8, Chloride 107, Carbon Dioxide 22.0, Anion Gap 9, BUN 25 H, Creatinine 1.47 H, Estim Creat Clear Calc 66.43, Est GFR (MDRD) Af Amer 65, Est GFR (MDRD) Non-Af 53 L, BUN/Creatinine Ratio 17.0, Glucose 111 H, Calcium 8.8, Total Bilirubin 2.00 H, AST 21, ALT 29, Alkaline Phosphatase 82, Troponin I High Sens 57, Total Protein 6.5, Albumin 3.3, Globulin 3.2, Albumin/Globulin Ratio 1.0 09/25/22 14:30: Lactic Acid 5.0 H* 09/25/22 14:45: Urine Color Yellow, Urine Clarity Clear, Urine pH 5.0, Ur Specific [place] 1.020, Urine Protein 30 H, Urine Glucose (UA) Normal, Urine Ketones 5 H, Urine Occult Blood 10 H, Urine Nitrite Negative, Urine Bilirubin Negative, Urine Urobilinogen Normal, Ur Leukocyte Esterase 25 H, Urine RBC 0-5 SEEN, Urine WBC 0-5 SEEN, Ur Squamous Epith Cells 0-5 SEEN, Urine Bacteria 0 SEEN, Urine Mucus 0 SEEN 09/25/22 19:25: Lactic Acid 2.8 H* 09/26/22 03:35: WBC 0.2 L*, RBC 2.98 L, Hgb 8.4 L, Hct 25.8 L, MCV 86.6, MCH 28.2, MCHC 32.6, RDW Std Deviation 58.6 H, RDW Coeff of [place]lesya 18.3 H, Plt Count 70 L, MPV 9.4, Immature Gran % (Auto) 0.000, Neut % (Auto) 53.3, Lymph % (Auto) 20.0, [place] % (Auto) 26.7 H, Eos % (Auto) 0.0, Baso % (Auto) 0.0, Absolute Neuts (auto) 0.1 L, Absolute Lymphs (auto) 0.03 L, Nucleated RBC % 0, Differential Com ment SCANNED, Diff Path Review May foll, Platelet Estimate MOD DEC, Anisocytosis 1+, Microcytosis 1+, Ovalocytes 1+ 09/26/22 03:35: Sodium 144, Potassium 4.1, Chloride 116 H, Carbon Dioxide 21.0, Anion Gap 7, BUN 22 H, Creatinine 1.27, Estim Creat Clear Calc 76.89, Est GFR (MDRD) Af Amer 76, Est GFR (MDRD) Non-Af 63, BUN/Creatinine Ratio 17.3, Glucose 118 H, Calcium 7.3 L, Total Bilirubin 1.40 H, AST 15, ALT 20, Alkaline Phosphatase 40 L, Total Protein 4.6 L, Albumin 2.3 L, Globulin 2.3, Albumin/Globulin Ratio 1.0 Micro: Microbiology 09/25/22 14:55 Urine Catheter - Stallings Legionella Antigen - Final 09/25/22 14:55 Urine Catheter - Stallings Streptococcus pneumoniae Antigen (M - Final 09/25/22 15:37 Nasal Secretion SARS-CoV-2 & FLU Antigen (Rapid) - Final ABG Data ABG results: ABG 09/25/22 20:09 Specimen Type ART Sample Site R Radial pH 7.47 H Bicarbonate Actual 19.0 L Total CO2 20 Base Excess -5 L O2 Saturation 97 O2 % 100 ABG pCO2 26.4 L ABG pO2 84 [place] Test Negative O2 Delivery Device NRB Attestation: I personally reviewed and interpreted this ABG as follows: (Compensated metabolic acidosis with increased AA gradient) Radiology Impression Chest X-Ray 09/25/22 14:10 IMPRESSION: There is bilateral basilar infiltrate / atelectasis. Electronically Signed: Rohan Gilliam MD at 15:09 EDT , Abdomen/Pelvis CT 09/25/22 14:12 IMPRESSION: (NOT LISTED IN ORDER OF SIGNIFICANCE) In a triangular pattern along the course of a branch of the left SMA, there is a soft tissue mass measuring 10.5 x 5.9cm. This is likely related to the patient''s known history of lymphoma. This mass abuts the small bowel where there is overlying wall thickening and inflammation. Neoplastic invasion is not excluded. This is causing a partial small bowel obstruction. Diffuse lower lobe pneumonia. Non obstructive 2 mm left renal parenchymal stones. There is hepatomegaly with diffuse hepatic enlargement. Other findings as above. Electronically Signed: Rohan Gilliam MD at 16:09 EDT , Charges/Coding Procedures Hospitalists Procedures: 52085 Critial Care 1st Hr
[2022-09-26] MEDS: Albuterol 2.5 MG/3 ML VIAL.NEB. INHALATION ×3 (07:25→19:00)
[2022-09-26] MEDS: Heparin Injection (Vial) 5,000 UNIT/ML VIAL 5000 UNIT SC ×2 (07:58→20:18)
[2022-09-26] MEDS: Acetaminophen 325 MG Tablet 650 MG PO ×3 (07:58→20:17)
[2022-09-26] MEDS: TBO-FILGRASTIM 480 MCG/0.8 ML ML SC (07:59)
[2022-09-26] MEDS: Allopurinol 300 MG Tablet PO (07:59)
[2022-09-26] MEDS: Acyclovir 200 MG Capsule 400 MG PO ×2 (07:59→20:17)
--- NOTE | 2022-09-26 13:20 | CASEMGMT ---
BERTA SNOW Assessment: Face to Face with pt for initial transition planning/care coordination assessment. BERTA SNOW introduced self and role at [facility], pt voices understanding and consents to assessment. Pt is A/O x4 and answers all questions appropriately at this time. Pt sitting up in bed with airvo on in no distress with dtr and at bedside. Pt agreeable to assessment with visitors present. Care providers, pharmacy, and demographics verified/updated. Admitting Dx: septic shock, neutropenia PCP:Sadiq Specialists:maile Esteves Preferred Pharmacy: [facility] Retail Insurance: [employer] Prescription Benefit: no LNOK: Leatha Mccabe, Living Arrangements: Pt lives with and 2 dtrs in a two story home with 5 steps to enter with a rail. Pt reports he is I in ADL's and denies concerns at home. Transportation: Pt hires drivers for transportation. DME/HHC/SNF: Pt does not have any AD in the home, denies hx of HHC or SNF stays. Pt states no concerns with going home at time of dc. Pt states no further concerns/needs. CM to follow for oxygen needs as well as therapy. Advised pt to ask CM if any further question/concerns/needs arise, voices understanding. Pt Goal: Home Plan: Home, follow oxygen needs and therapy
--- NOTE | 2022-09-26 17:06 | PCM.PN.HOSP ---
Reason for Visit Reason for Visit: Diagnoses Sepsis, unspecified organism (09/25/22) Neutropenia, unspecified (09/25/22) Pneumonia, unspecified organism (09/25/22) Pneumonitis due to inhalation of food and vomit (09/25/22) Fever presenting with conditions classified elsewhere (09/25/22) Severe sepsis with septic shock (09/25/22) Subjective Subjective Patient was seen and examined today, he is off pressors at this time, I have decided to advance the patient's diet to regular diet. He is currently on 5 L of oxygen at this time. I talked briefly with critical care about his care today. Tmax today so far has been 102.3 oral. Objective Data Objective Data Vital Signs: Vital Signs Temp Pulse Resp BP Pulse Ox O2 Del Method O2 Flow Rate 100 F H 111 H 24 H 101/67 98 Nasal Cannula 5 09/26/22 16:00 09/26/22 16:00 09/26/22 16:00 09/26/22 16:00 09/26/22 16:00 09/26/22 16:00 09/26/22 16:00 FiO2 49 09/26/22 13:47 Oxygen Flow Rate (L/min) 5 Oxygen Delivery Method Nasal Cannula Weight: 97.7 kg Body Mass Index (BMI) 28.0 Intake & Output: Intake and Output for Last 24 Hours 09/24/22 09/25/22 09/26/22 23:59 23:59 23:59 Intake Total 6392.33 / 6392.33 2724.45 / 2724.45 Output Total 700 / 700 1300 / 1300 Balance 5692.33 / 5692.33 1424.45 / 1424.45 Lab / Micro Data Result Diagrams: 09/26/22 03:35 09/26/22 03:35 Labs: Laboratory Results - last 24 hr 09/25/22 19:25: Lactic Acid 2.8 H* 09/26/22 03:35: WBC 0.2 L*, RBC 2.98 L, Hgb 8.4 L, Hct 25.8 L, MCV 86.6, MCH 28.2, MCHC 32.6, RDW Std Deviation 58.6 H, RDW Coeff of Olesya 18.3 H, Plt Count 70 L, MPV 9.4, Immature Gran % (Auto) 0.000, Neut % (Auto) 53.3, Lymph % (Auto) 20.0, [place] % (Auto) 26.7 H, Eos % (Auto) 0.0, Baso % (Auto) 0.0, Absolute Neuts (auto) 0.1 L, Absolute Lymphs (auto) 0.03 L, Nucleated RBC % 0, Differential Comment SCANNED, Diff Path Review May foll, Platelet Estimate MOD DEC, Anisocytosis 1+, Microcytosis 1+, Ovalocytes 1+ 09/26/22 03:35: Sodium 144, Potassium 4.1, Chloride 116 H, Carbon Dioxide 21.0, Anion Gap 7, BUN 22 H, Creatinine 1.27, Estim Creat Clear Calc 76.89, Est GFR (MDRD) Af Amer 76, Est GFR (MDRD) Non-Af 63, BUN/Creatinine Ratio 17.3, Glucose 118 H, Calcium 7.3 L, Total Bilirubin 1.40 H, AST 15, ALT 20, Alkaline Phosphatase 40 L, Total Protein 4.6 L, Albumin 2.3 L, Globulin 2.3, Albumin/Globulin Ratio 1.0 Micro: Microbiology 09/25/22 14:45 Urine, Catheterized Urine Culture - Preliminary Culture exhibits no growth. 09/25/22 14:55 Urine Catheter - Stallings Legionella Antigen - Final 09/25/22 14:55 Urine Catheter - Stallings Streptococcus pneumoniae Antigen (M - Final 09/25/22 15:37 Nasal Secretion SARS-CoV-2 & FLU Antigen (Rapid) - Final ABG Data ABG results: ABG 09/25/22 20:09 Specimen Type ART Sample Site R Radial pH 7.47 H Bicarbonate Actual 19.0 L Total CO2 20 Base Excess -5 L O2 Saturation 97 O2 % 100 ABG pCO2 26.4 L ABG pO2 84 [place] Test Negative O2 Delivery Device NRB Radiography Diagnostic Testing: Radiology Impression Abdomen/Pelvis CT 09/25/22 14:12 IMPRESSION: (NOT LISTED IN ORDER OF SIGNIFICANCE) In a triangular pattern along the course of a branch of the left SMA, there is a soft tissue mass measuring 10.5 x 5.9cm. This is likely related to the patient''s known history of lymphoma. This mass abuts the small bowel where there is overlying wall thickening and inflammation. Neoplastic invasion is not excluded. This is causing a partial small bowel obstruction. Diffuse lower lobe pneumonia. Non obstructive 2 mm left renal parenchymal stones. There is hepatomegaly with diffuse hepatic enlargement. Other findings as above. Electronically Signed: Rohan Gilliam MD at 16:09 EDT , Physical Exam Const alert, oriented x3, no apparent distress and average body habitus General Appearance: cooperative, well kempt and well developed Orientation / Consciousness: awake, oriented to person, oriented to place and oriented to time HEENT normocephalic, head/scalp atraumatic and moist oral mucous membranes Eyes PERRL, EOMs intact bilaterally and conjunctivae normal Neck supple, no JVD, thyroid normal and no carotid bruits General: trachea midline Resp normal respiratory effort, no retractions and no use of accessory muscles Resp Narrative: Scattered rhonchi over the lower lung bases Auscultation: Negative for rales, rhonchi or wheezes Cardio regular rate, regular rhythm, S1 normal heart sound, S2 normal heart sound, no murmurs, no rub and no gallops GI normal to inspection, nondistended, normoactive bowel sounds, soft to palpation, non-tender and non-distended Extremity no clubbing, cyanosis or edema Skin no rashes or lesions noted General Skin Exam: no breakdown Neuro oriented x3, CN's II-XII intact bilaterally, moves all extremities, no focal motor deficits and no sensory deficits noted Sensorium / Orientation: awake, alert, oriented to person, oriented to place and oriented to time Speech: speech normal Psych affect normal Assessment & Plan Assessment/Plan (1) Septic shock: (2) Pneumonia: PLAN: Plan 1. Septic shock-suspected to be secondary to aspiration pneumonia, continue Zosyn and vancomycin #2 bilateral lower lobe pneumonia, probable aspiration pneumonia-again patient is on Zosyn and vancomycin, he will receive aerosol treatments #3 neutropenia-patient will be given Granix, complicates care, medical course, recovery and prognosis, labs will be monitored, absolute neutrophil count today was 100 #4 B-cell lymphoma-again patient had his last chemotherapy session last week #5 nausea/vomiting/diarrhea-etiology unclear at this point, the symptoms have resolved at this time, I will place patient on a regular diet #6 hypoxia secondary to septic shock and pneumonia, patient's pulse ox will be monitored, supplemental oxygen will be administered, he is currently on nasal cannula oxygen Total clinical time spent by myself addressing the patient's medical issues, reviewing all of the data, and collaborating with patient's care team: 35 minutes Charges/Coding Visit Charges Inpatient E&M: 55805 Subs Hosp L2
[2022-09-26] MEDS: 0.9% Saline Lock 10 ML Syringe IV (20:17)
[2022-09-26] MEDS: hydrOXYzine PAM 25 MG Capsule 50 MG PO (20:20)
[2022-09-26] MEDS: 0.9% Normal Saline 1,000 ML 100 ML IV (20:24)
[2022-09-27] VITALS (23 sets, daily range): BP systolic 107–142; BP diastolic 50–96; PULSE 95–114; RESP 18–28; TEMP 36.8–38.6; O2SAT 88–99; BMI 28.3
[2022-09-27] MEDS: 0.9% Saline Lock 10 ML Syringe IV (00:23)
[2022-09-27] MEDS: Ketorolac 30 MG/ML Syringe IV ×3 (00:23→14:38)
[2022-09-27] MEDS: Acetaminophen 325 MG Tablet 650 MG PO ×4 (03:34→23:00)
[2022-09-27 03:57] LABS: Absolute Lymphocyte Count 0.11 X10^3/uL (0.83-4.51); Absolute Neutrophil Count 1.7 X10^3/uL (2.0-7.7); Basophil# 0.03 X10^3/uL; Basophil% 1.4 % (0-1); Eosinophil# 0.02 X10^3/uL; Hematocrit 24.9 % (40-54); Hemoglobin 8.2 g/dL (13.0-16.5); Lymphocyte # 0.11 X10^3/ul (0.83-4.51); Lymphocyte % 5.3 % (19-41); Mean Corp Hgb Conc 32.9 g/dL (32-36); Mean Corpuscular Hgb 28.2 pg (27.0-32.0); Mean Corpuscular Volume 85.6 fL (80-94); Mean Platelet Vol. 9.8 fl (6.2-12.0); Monocyte# 0.17 X10^3/uL; Monocyte% 8.2 % (0-10); NRBC Flagged by Analyzer 0 % (0-5); Neutrophil # 1.73 X10^3/uL (2.7-7.7); Neutrophil % 83.6 % (47-70); POSITIVE COUNT YES; POSITIVE DIFFERENTIAL YES; POSITIVE MORPHOLOGY YES; Platelet Count 62 K/mm3 (150-450); RBC Distribution Width CV 18.5 % (11.6-14.6); RBC Distribution Width SD 57.9 fl (35.1-43.9); Red Blood Count 2.91 M/mm3 (4.6-6.2); White Blood Count 2.1 K/mm3 (4.4-11.0)
[2022-09-27 04:18] LABS: Anion Gap 7 (5-15); BUN 13 mg/dL (7-18); BUN/Creat Ratio 11.6 RATIO (10-20); Calcium,Total 7.8 mg/dL (8.5-10.1); Chloride 116 mmol/L (98-107); Creatinine, Serum 1.12 mg/dL (0.70-1.30); EST Glomerular Filtration Rate 73 mL/min (>60); Est Glom Filt Rate - Afr Amer 88 mL/min (>60); Estimated Creatinine Clearance 87.19 ml/min; Glucose 83 mg/dL (74-106); Potassium 3.5 mmol/L (3.5-5.1); Sodium Level 145 mmol/L (136-145)
[2022-09-27 04:20] LABS: Vancomycin, Trough Level 9.6 ug/mL (5.0-15.0)
--- NOTE | 2022-09-27 04:32 | PCM.RX.CS ---
Consult Pharmacy has been consulted to manage selected antiobiotic: Vancomycin Type of Consult: Follow-up Suspected Infection: Sepsis, Pneumonia Prior Doses of Antibiotics Received/Current Regimen: Medications Vancomycin HCl 1,750 mg/ (Sodium Chloride) 535 mls @ 250 mls/hr IV Q12H HENRIK Vancomycin HCl 1,250 mg/ (Sodium Chloride) 275 mls @ 167 mls/hr IV Q12H HENRIK Stop: 09/27/22 05:30 Last Admin: 09/27/22 03:27 Dose: 167 mls/hr Labs: Sodium 145 mmol/L (136-145) 09/27/22 03:30 Potassium 3.5 mmol/L (3.5-5.1) 09/27/22 03:30 Chloride 116 mmol/L (98-107) H 09/27/22 03:30 Carbon Dioxide 22.0 mmol/L (21.0-32.0) 09/27/22 03:30 Anion Gap 7 (5-15) 09/27/22 03:30 BUN 13 mg/dL (7-18) 09/27/22 03:30 Creatinine 1.12 mg/dL (0.70-1.30) 09/27/22 03:30 Est GFR (MDRD) Af Amer 88 mL/min (>60) 09/27/22 03:30 Est GFR (MDRD) Non-Af 73 mL/min (>60) 09/27/22 03:30 BUN/Creatinine Ratio 11.6 RATIO (10-20) 09/27/22 03:30 Glucose 83 mg/dL (74-106) 09/27/22 03:30 Vancomycin Trough 9.6 ug/mL (5.0-15.0) 09/27/22 03:30 Microbiology: Microbiology 09/25/22 14:45 Urine, Catheterized Urine Culture - Preliminary Culture exhibits no growth. 09/25/22 14:55 Urine Catheter - Stallings Legionella Antigen - Final 09/25/22 14:55 Urine Catheter - Stallings Streptococcus pneumoniae Antigen (M - Final 09/25/22 15:37 Nasal Secretion SARS-CoV-2 & FLU Antigen (Rapid) - Final Weight used for dosin.7 kg Estimated Creatinine Clearance: 87 Goal Trough: 15-20 mcg/mL Pharmacy Plan for Drug Dosing: Vancomycin trough level, drawn 11 hours post-dose, was low at 9.6. This is owing to the steady improvement in renal clearance (SCr now 1.12). The dose will be increased to 1750mg q12h, and another trough will be drawn prior to the fourth dose of the new regimen. Pharmacy Service will continue to monitor and adjust dosing as required. Follow-Up Labs: Trough Vancomycin Labs to be done on [date and time ordered]: 09/29/22 @0300
[2022-09-27 05:00] LABS: Differential Indicated SCAN CRITERIA MET
[2022-09-27 05:08] LABS: Differential Comment SCANNED
[2022-09-27 05:12] LABS: Dohle Bodies 1+
[2022-09-27 05:14] LABS: Toxic Granulation RARE
[2022-09-27] MEDS: 0.9% Normal Saline 1,000 ML 100 ML IV ×2 (05:14→14:42)
[2022-09-27] MEDS: Albuterol 2.5 MG/3 ML VIAL.NEB. INHALATION ×4 (05:24→23:37)
--- NOTE | 2022-09-27 06:53 | PN.CC_ITS ---
Assessment & Plan Assessment/Plan (1) Septic shock: (2) Neutropenic fever: (3) Aspiration pneumonia: PLAN: Plan RECOMMENDATIONS: 1. Continue empiric antibiotics pending cultures 2. Aggressive pulmonary toileting 3. Wean oxygen as tolerated 4. Increase activity as tolerated 5. Symptomatic control of fever 6. Likely okay to leave the intensive care unit IMPRESSIONS: 1. Neutropenic fever secondary to septic shock secondary to aspiration pneumonia Patient is on broad-spectrum antibiotics at this time. Patient is at risk for gram-positive's given aspiration etiology. Patient is currently off Levophed. White blood cell count is significantly improved. Likely okay to discontinue Granix from my perspective. Would not recommend additional fluid boluses given patient's respiratory status. 2. Acute hypoxic respiratory failure secondary to aspiration pneumonia Patient does not appear to have any respiratory history per his report. Patient does have extensive infiltrates inferiorly suggestive of aspiration on CT of the abdomen. Oxygenation has improved significantly over the last 24 hours. Patient did verify that he is a full code. Patient is protecting his airway at this time and doing okay. Mobilization of the patient may help with moving of secretions. Cannot exclude the need to go directly to intubation if decompensates acutely given problem #4, but this would have to be assessed at that time. 3. Neutropenia secondary to chemotherapy secondary to B-cell lymphoma Patient currently on Granix. Patient neutropenic secondary to chemotherapy. Patient is on broad-spectrum antibiotics. Likely okay to discontinue Granix from my perspective. We will continue to follow. 4. Nausea/vomiting/diarrhea Unclear if this is chemo induced. 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 Surgery was contacted and no intervention is required. If patient starts to deteriorate this may need to be reevaluated. Okay to advance diet from my perspective. We will continue to monitor. Patient also has received chemotherapy and may be having some secondary effects. Subjective Subjective Patient did well overnight. Patient has been off of Levophed since approximately 1 PM yesterday. Patient is not reporting any current chest pain, nausea or vomiting. Patient's fever curve has improved. Patient still requiring 4 L nasal cannula to maintain saturations. Objective Data Objective Data Vital Signs: Vital Signs Temp Pulse Resp BP Pulse Ox O2 Del Method O2 Flow Rate 37.6 C H 100 21 H 127/82 H 95 Nasal Cannula 4 09/27/22 06:00 09/27/22 06:00 09/27/22 06:00 09/27/22 06:00 09/27/22 06:00 09/27/22 06:00 09/27/22 06:00 FiO2 49 09/26/22 13:47 Oxygen Flow Rate (L/min) 4 Oxygen Delivery Method Nasal Cannula Weight: 99 kg Body Mass Index (BMI) 28.3 Intake & Output: Intake and Output for Last 24 Hours 09/25/22 09/26/22 09/27/22 23:59 23:59 23:59 Intake Total 6392.33 / 6392.33 4549.45 / 4549.45 1504.08 / 1504.08 Output Total 700 / 700 3350 / 4350 1800 / 1800 Balance 5692.33 / 5692.33 1199.45 / 199.45 -295.92 / -295.92 Lab / Micro Data Attestation: I reviewed the patient's lab results. Result Diagrams: 09/27/22 03:30 09/27/22 03:30 Labs: Laboratory Results - last 24 hr 09/27/22 03:30: Vancomycin Trough 9.6 09/27/22 03:30: WBC 2.1 L, RBC 2.91 L, Hgb 8.2 L, Hct 24.9 L, MCV 85.6, MCH 28.2, MCHC 32.9, RDW Std Deviation 57.9 H, RDW Coeff of Olesya 18.5 H, Plt Count 62 L, MPV 9.8, Immature Gran % (Auto) 0.500, Neut % (Auto) 83.6 H, Lymph % (Auto) 5.3 L, [place] % (Auto) 8.2, Eos % (Auto) 1.0, Baso % (Auto) 1.4 H, Absolute Neuts (auto) 1.7 L, Absolute Lymphs (auto) 0.11 L, Nucleated RBC % 0, Differential Comment SCANNED, Diff Path Review May foll, Toxic Granulation RARE, Dohle Bodies 1+ 09/27/22 03:30: Sodium 145, Potassium 3.5, Chloride 116 H, Carbon Dioxide 22.0, Anion Gap 7, BUN 13, Creatinine 1.12, Estim Creat Clear Calc 87.19, Est GFR (MDRD) Af Amer 88, Est GFR (MDRD) Non-Af 73, BUN/Creatinine Ratio 11.6, Glucose 83, Calcium 7.8 L Micro: Microbiology 09/25/22 14:30 Blood Culture (Wb) - Port Blood Culture - Preliminary No growth in 48 hours. 09/25/22 14:45 Blood Culture (Wb) - Port Blood Culture - Preliminary No growth in 48 hours. 09/25/22 14:45 Urine, Catheterized Urine Culture - Preliminary Culture exhibits no growth. 09/25/22 14:55 Urine Catheter - Stallings Legionella Antigen - Final 09/25/22 14:55 Urine Catheter - Stallings Streptococcus pneumoniae Antigen (M - Final 09/25/22 15:37 Nasal Secretion SARS-CoV-2 & FLU Antigen (Rapid) - Final Physical Exam Const alert and oriented x3 Constitutional Narrative: Patient appears mildly diaphoretic and unwell. Gross appearance is better today than yesterday General Appearance: cooperative, well kempt, well developed and ill appearing HEENT normocephalic, head/scalp atraumatic, hearing grossly normal bilaterally and moist oral mucous membranes HEENT Narrative: Alopecia noted Eyes PERRL, EOMs intact bilaterally and conjunctivae normal Neck supple, no JVD, thyroid normal and no carotid bruits General: trachea midline Resp Auscultation: rhonchi lower bilaterally; Negative for rales or wheezes Cardio regular rate, regular rhythm, S1 normal heart sound, S2 normal heart sound, no murmurs, no rub and no gallops GI normal to inspection, nondistended, normoactive bowel sounds, soft to palpation, non-tender and non-distended Extremity no clubbing, cyanosis or edema Skin no rashes or lesions noted General Skin Exam: no breakdown Neuro oriented x3, CN's II-XII intact bilaterally, moves all extremities, no focal motor deficits and no sensory deficits noted Psych affect normal Charges/Coding Visit Charges Inpatient E&M: 29412 Subs Hosp L3
[2022-09-27] MEDS: Allopurinol 300 MG Tablet PO (07:55)
[2022-09-27] MEDS: Heparin Injection (Vial) 5,000 UNIT/ML VIAL 5000 UNIT SC ×2 (07:56→20:47)
[2022-09-27] MEDS: Acyclovir 200 MG Capsule 400 MG PO ×2 (07:59→20:47)
[2022-09-27] MEDS: TBO-FILGRASTIM 480 MCG/0.8 ML ML SC (07:59)
--- NOTE | 2022-09-27 09:52 | PCM.PN.HOSP ---
Reason for Visit Reason for Visit: Diagnoses Sepsis, unspecified organism (09/25/22) Neutropenia, unspecified (09/25/22) Pneumonia, unspecified organism (09/25/22) Pneumonitis due to inhalation of food and vomit (09/25/22) Fever presenting with conditions classified elsewhere (09/25/22) Severe sepsis with septic shock (09/25/22) Subjective Subjective Patient was seen and examined today, he remains off pressors, he is still running a low-grade fever. I talked briefly with pulmonary medicine about his care, he appears stable for transfer to the floor I talked briefly with his who was in the room at the time my examination. Objective Data Objective Data Vital Signs: Vital Signs Temp Pulse Resp BP Pulse Ox O2 Del Method O2 Flow Rate 99.9 F H 102 H 19 H 127/84 H 96 Nasal Cannula 4 09/27/22 09:00 09/27/22 09:00 09/27/22 09:00 09/27/22 09:00 09/27/22 09:00 09/27/22 09:00 09/27/22 09:00 FiO2 49 09/26/22 13:47 Oxygen Flow Rate (L/min) 4 Oxygen Delivery Method Nasal Cannula Weight: 99 kg Body Mass Index (BMI) 28.3 Intake & Output: Intake and Output for Last 24 Hours 09/25/22 09/26/22 09/27/22 23:59 23:59 23:59 Intake Total 6392.33 / 6392.33 4549.45 / 4549.45 1804.08 / 1804.08 Output Total 700 / 700 3350 / 4350 1800 / 1800 Balance 5692.33 / 5692.33 1199.45 / 199.45 4.08 / 4.08 Lab / Micro Data Result Diagrams: 09/27/22 03:30 09/27/22 03:30 Labs: Laboratory Results - last 24 hr 09/27/22 03:30: Vancomycin Trough 9.6 09/27/22 03:30: WBC 2.1 L, RBC 2.91 L, Hgb 8.2 L, Hct 24.9 L, MCV 85.6, MCH 28.2, MCHC 32.9, RDW Std Deviation 57.9 H, RDW Coeff of Olesya 18.5 H, Plt Count 62 L, MPV 9.8, Immature Gran % (Auto) 0.500, Neut % (Auto) 83.6 H, Lymph % (Auto) 5.3 L, [place] % (Auto) 8.2, Eos % (Auto) 1.0, Baso % (Auto) 1.4 H, Absolute Neuts (auto) 1.7 L, Absolute Lymphs (auto) 0.11 L, Nucleated RBC % 0, Differential Comment SCANNED, Diff Path Review May foll, Toxic Granulation RARE, Dohle Bodies 1+ 09/27/22 03:30: Sodium 145, Potassium 3.5, Chloride 116 H, Carbon Dioxide 22.0, Anion Gap 7, BUN 13, Creatinine 1.12, Estim Creat Clear Calc 87.19, Est GFR (MDRD) Af Amer 88, Est GFR (MDRD) Non-Af 73, BUN/Creatinine Ratio 11.6, Glucose 83, Calcium 7.8 L Micro: Microbiology 09/25/22 14:30 Blood Culture (Wb) - Port Blood Culture - Preliminary No growth in 48 hours. 09/25/22 14:45 Blood Culture (Wb) - Port Blood Culture - Preliminary No growth in 48 hours. 09/25/22 14:45 Urine, Catheterized Urine Culture - Preliminary Culture exhibits no growth. 09/25/22 14:55 Urine Catheter - Stallings Legionella Antigen - Final 09/25/22 14:55 Urine Catheter - Stallings Streptococcus pneumoniae Antigen (M - Final 09/25/22 15:37 Nasal Secretion SARS-CoV-2 & FLU Antigen (Rapid) - Final Physical Exam Const alert, oriented x3, no apparent distress and average body habitus General Appearance: cooperative, well kempt and well developed Orientation / Consciousness: awake, oriented to person, oriented to place and oriented to time HEENT normocephalic, head/scalp atraumatic and moist oral mucous membranes Eyes PERRL, EOMs intact bilaterally and conjunctivae normal Neck supple, no JVD, thyroid normal and no carotid bruits General: trachea midline Resp normal respiratory effort, no retractions, no use of accessory muscles and clear to auscultation bilaterally Auscultation: Negative for rales, rhonchi or wheezes Cardio regular rate, regular rhythm, S1 normal heart sound, S2 normal heart sound, no murmurs, no rub and no gallops GI normal to inspection, nondistended, normoactive bowel sounds, soft to palpation, non-tender and non-distended Extremity no clubbing, cyanosis or edema Skin no rashes or lesions noted General Skin Exam: no breakdown Neuro oriented x3, CN's II-XII intact bilaterally, moves all extremities, no focal motor deficits and no sensory deficits noted Sensorium / Orientation: awake, alert, oriented to person, oriented to place and oriented to time Speech: speech normal Psych affect normal Assessment & Plan Assessment/Plan (1) Aspiration pneumonia: (2) Septic shock: (3) Pneumonia: PLAN: Plan 1. Septic shock-suspected to be secondary to aspiration pneumonia, continue Zosyn and vancomycin, patient appears stable to move to PCU at this time #2 bilateral lower lobe pneumonia, probable aspiration pneumonia-again patient is on Zosyn and vancomycin, he will receive aerosol treatments #3 neutropenia-at this time it is corrected, I will stop his Granix, repeat CBC in the morning #4 B-cell lymphoma-again patient had his last chemotherapy session last week #5 nausea/vomiting/diarrhea-etiology unclear at this point, the symptoms have resolved at this time, patient remains on a regular diet #6 hypoxia secondary to septic shock and pneumonia, patient's pulse ox will be monitored, supplemental oxygen will be administered, he is currently on nasal cannula oxygen Total clinical time spent by myself addressing the patient's medical issues, reviewing all of the data, and collaborating with patient's care team: 36 minutes Charges/Coding Visit Charges Inpatient E&M: 51896 Subs Hosp L2
--- NOTE | 2022-09-27 12:06 | NURSING ---
report called to [facility] for transfer to room 119, family present transferred with belongings to room 119
[2022-09-27] MEDS: Famotidine 20 MG Tablet PO ×2 (14:38→20:47)
[2022-09-27] MEDS: Ipratropium/Albuterol Sulfate 3 ML AMPUL.NEB INHALATION (15:39)
[2022-09-27] MEDS: hydrOXYzine PAM 25 MG Capsule 50 MG PO (23:00)
[2022-09-28] VITALS (13 sets, daily range): BP systolic 136–145; BP diastolic 89–101; PULSE 91–110; RESP 18–40; TEMP 36.8–38.3; O2SAT 89–98; BMI 29.2
[2022-09-28] MEDS: 0.9% Normal Saline 1,000 ML 100 ML IV (02:51)
--- NOTE | 2022-09-28 06:47 | PCM.PN.INT ---
Assessment & Plan Assessment/Plan (1) Neutropenic fever: (2) Aspiration pneumonia: PLAN: Plan RECOMMENDATIONS: 1. Continue empiric antimicrobials, pending finalized culture results. 2. Wean supplemental oxygen to maintain saturations at or above 90%. 3. Initiate gentle diuresis today. Stop continuous IV fluids. 4. Encourage incentive spirometer use and mobilize patient as tolerated. 5. We will sign off from a critical care perspective. Please call with any additional questions. 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 He remains hemodynamically stable off of vasopressor support. Continue supportive care, pending finalized culture results. 2.??Acute hypoxic respiratory failure secondary to aspiration pneumonia The patient is overall net positive from a volume perspective and remains symptomatic with exertion. I would recommend discontinuation of continuous IV fluids and initiation of gentle diuresis, as tolerated by hemodynamics and renal function. Continue to wean supplemental oxygen to maintain saturations at or above 90%. Encourage incentive spirometer use and mobilize patient as tolerated. 3.??Neutropenia secondary to chemotherapy secondary to B-cell lymphoma Complicates care, management, recovery and prognosis. Continue supportive measures as noted above. This note was generated with [employer] dictation software. It may contain incorrect words, spelling, and punctuation that were not noted in checking the note before signing. Subjective Subjective The patient was seen and examined at the bedside this morning. Events from the last 24 hours have been reviewed. The patient is currently afebrile, hemodynamically stable and maintaining appropriate oxygen saturations on 5 L/min via nasal cannula. The patient is documented to be overall net +9.2 L for the hospitalization. The patient remains pancytopenic. The patient denies any resting shortness of breath, but does report feeling winded with any form of exertion. Objective Data Objective Data The patient's most recent lab work, culture data and imaging studies have all been personally reviewed. Surface echocardiogram from July 2022 demonstrated normal LV size and function with an ejection fraction of 70%. Sputum culture dated September 26 is demonstrating growth of a gram-negative yusef, lactose trailer park manager. Vital Signs: Vital Signs Temp Pulse Resp BP Pulse Ox O2 Del Method O2 Flow Rate 98.2 F 95 18 140/92 H 94 Nasal Cannula 5 09/28/22 04:45 09/28/22 04:45 09/28/22 04:45 09/28/22 04:45 09/28/22 04:45 09/28/22 06:10 09/28/22 04:45 FiO2 49 09/26/22 13:47 Oxygen Flow Rate (L/min) 5 Oxygen Delivery Method Nasal Cannula Weight: 225 lb 8.526 oz Body Mass Index (BMI) 29.2 Intake & Output: Intake and Output for Last 24 Hours 09/26/22 09/27/22 09/28/22 23:59 23:59 23:59 Intake Total 4549.45 / 4549.45 4677.42 / 4677.42 200 / 200 Output Total 3350 / 4350 2500 / 2500 Balance 1199.45 / 199.45 2177.42 / 2177.42 200 / 200 Lab / Micro Data Attestation: I reviewed the patient's lab results. Result Diagrams: 09/29/22 03:15 09/29/22 03:15 Micro: Microbiology 09/26/22 14:45 Sputum, Expectorated/Coughed Gram Stain - Final 09/26/22 14:45 Sputum, Expectorated/Coughed Respiratory Culture - Preliminary GNR lactose trailer park manager 09/25/22 14:45 Urine, Catheterized Urine Culture - Final Culture exhibits no growth. 09/25/22 14:30 Blood Culture (Wb) - Port Blood Culture - Preliminary No growth in 48 hours. 09/25/22 14:45 Blood Culture (Wb) - Port Blood Culture - Preliminary No growth in 48 hours. 09/25/22 14:55 Urine Catheter - Stallings Legionella Antigen - Final 09/25/22 14:55 Urine Catheter - Stallings Streptococcus pneumoniae Antigen (M - Final 09/25/22 15:37 Nasal Secretion SARS-CoV-2 & FLU Antigen (Rapid) - Final Physical Exam Const alert and no apparent distress General Appearance: cooperative HEENT normocephalic and head/scalp atraumatic Eyes PERRL, EOMs intact bilaterally and conjunctivae normal Neck supple General: trachea midline Chest inspection of chest normal Resp normal respiratory effort Auscultation: Negative for rales, rhonchi or wheezes Cardio regular rate and regular rhythm GI normal to inspection, nondistended, normoactive bowel sounds Extremity no clubbing, cyanosis or edema Skin no rashes or lesions noted Neuro oriented x3, CN's II-XII intact bilaterally and moves all extremities Psych Mood & Affect: flat affect Charges/Coding Visit Charges Inpatient E&M: 43032 Subs Hosp L2
[2022-09-28 07:14] LABS: Hematocrit 23.5 % (40-54); Hemoglobin 7.9 g/dL (13.0-16.5); Mean Corp Hgb Conc 33.6 g/dL (32-36); Mean Corpuscular Volume 86.4 fL (80-94); Mean Platelet Vol. 9.7 fl (6.2-12.0); POSITIVE COUNT YES; POSITIVE DIFFERENTIAL YES; POSITIVE MORPHOLOGY YES; Platelet Count 74 K/mm3 (150-450); RBC Distribution Width CV 18.6 % (11.6-14.6); Red Blood Count 2.72 M/mm3 (4.6-6.2)
[2022-09-28 07:18] LABS: Differential Indicated MANUAL DIFF
[2022-09-28 07:24] LABS: Anion Gap 6 (5-15); BUN 15 mg/dL (7-18); BUN/Creat Ratio 14.6 RATIO (10-20); Calcium,Total 8.3 mg/dL (8.5-10.1); Chloride 117 mmol/L (98-107); Creatinine, Serum 1.03 mg/dL (0.70-1.30); EST Glomerular Filtration Rate 80 mL/min (>60); Est Glom Filt Rate - Afr Amer 97 mL/min (>60); Estimated Creatinine Clearance 94.81 ml/min; Glucose 82 mg/dL (74-106); Potassium 3.3 mmol/L (3.5-5.1); Sodium Level 145 mmol/L (136-145)
[2022-09-28 07:37] LABS: Eosinophil 1 % (0-5); Lymphocyte 6 % (19-41); Monocyte 2 % (0-10); Neutrophil-Segmented 91 % (47-70); Platelet Estimate MOD DEC (ADEQ); Total Cells Counted 100 (MANUAL DIFF)
[2022-09-28 07:38] LABS: Ovalocyte 1+
[2022-09-28 07:39] LABS: Absolute Neutrophil Count 6.4 X10^3/uL (2.0-7.7); Red Cell Morphology N CHROM NORMAL (NORM C&C)
[2022-09-28 07:40] LABS: Absolute Lymphocyte Count 0.42 X10^3/uL (0.83-4.51)
[2022-09-28] MEDS: 0.9% Saline Lock 10 ML Syringe IV ×3 (07:42→16:30)
[2022-09-28] MEDS: Ipratropium/Albuterol Sulfate 3 ML AMPUL.NEB INHALATION (07:45)
[2022-09-28] MEDS: Furosemide 20 MG/2 ML VIAL (08:01)
--- NOTE | 2022-09-28 08:11 | RAD_ITS ---
STUDY: X-RAY CHEST REASON FOR EXAM: Male, 52 years old. pneumonia TECHNIQUE: PA and lateral COMPARISON: September 25, 2022. FINDINGS: There are mixed bilateral interstitial and alveolar infiltrates in the lower lobes which may be consistent with pneumonia.. [The right costophrenic angle possibly tiny effusion. Mediport catheter noted on the left with tip at the atrial caval junction Normal size heart. Normal mediastinum and randal. Normal visualized pulmonary arteries. Normal visualized aortic arch and descending thoracic aorta. Normal visualized thoracic spine. Normal visualized ribs, clavicles, and shoulders. There is no demonstrated abnormality of the visualized soft tissue structures of the upper abdomen. The bilateral lower lobe infiltrates have increased in severity since prior study RAD/Chest PA and Lateral IMPRESSION: Increasing bilateral lower lobe infiltrates Electronically Signed: Robert Farah MD at 21:48 EDT ,
--- NOTE | 2022-09-28 08:30 | CPS ---
ALBUTEROL SCHEDULED Q6, RN NOTIFIED ME OF DUONEB X1 STICK ORDER. GAVE PATIENT DUONEB INSTEAD OF ALBUTEROL FIRST ROUND. WILL CONT. SCHEDULED ALBUTEROL Q6 AT NEXT ROUND.
[2022-09-28] MEDS: Allopurinol 300 MG Tablet PO (10:35)
[2022-09-28] MEDS: Potassium Chloride Oral Tablet 20 MEQ 40 MEQ PO (10:35)
[2022-09-28] MEDS: Acetaminophen 325 MG Tablet 650 MG PO ×2 (10:35→22:54)
[2022-09-28] MEDS: Acyclovir 200 MG Capsule 400 MG PO ×2 (10:35→20:32)
[2022-09-28] MEDS: Famotidine 20 MG Tablet PO ×2 (10:35→20:32)
[2022-09-28] MEDS: Heparin Injection (Vial) 5,000 UNIT/ML VIAL 5000 UNIT SC ×2 (10:36→20:32)
[2022-09-28] MEDS: Albuterol 2.5 MG/3 ML VIAL.NEB. INHALATION ×2 (13:22→19:44)
--- NOTE | 2022-09-28 13:54 | PCM.PN.HOSP ---
Reason for Visit Reason for Visit: Diagnoses Sepsis, unspecified organism (09/25/22) Neutropenia, unspecified (09/25/22) Pneumonia, unspecified organism (09/25/22) Pneumonitis due to inhalation of food and vomit (09/25/22) Fever presenting with conditions classified elsewhere (09/25/22) Severe sepsis with septic shock (09/25/22) Subjective Subjective Patient was seen and examined today, he states he feels tired, he is not short of breath at rest. Patient's oxygen requirement is now 3 L. Chest x-ray today showed bilateral pneumonia, patient's white blood cell count today was 7, hemoglobin was 7.9. Patient still running a temperature today, temperature this morning was 100.9. 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 Objective Data Objective Data Vital Signs: Vital Signs Temp Pulse Resp BP Pulse Ox O2 Del Method O2 Flow Rate 99.5 F H 110 H 18 145/93 H 96 Nasal Cannula 3 09/28/22 12:48 09/28/22 13:22 09/28/22 13:22 09/28/22 10:31 09/28/22 10:31 09/28/22 10:31 09/28/22 13:22 FiO2 49 09/26/22 13:47 Oxygen Flow Rate (L/min) 3 Oxygen Delivery Method Nasal Cannula Weight: 102.3 kg Body Mass Index (BMI) 29.2 Intake & Output: Intake and Output for Last 24 Hours 09/26/22 09/27/22 09/28/22 23:59 23:59 23:59 Intake Total 4549.45 / 4549.45 4677.42 / 4677.42 1876.67 / 1876.67 Output Total 3350 / 4350 2500 / 2500 2525 / 2525 Balance 1199.45 / 199.45 2177.42 / 2177.42 -648.33 / -648.33 Lab / Micro Data Result Diagrams: 09/28/22 06:56 09/28/22 06:56 Labs: Laboratory Results - last 24 hr 09/28/22 06:56: WBC 7.0, RBC 2.72 L, Hgb 7.9 L, Hct 23.5 L, MCV 86.4, MCH 29.0, MCHC 33.6, RDW Std Deviation 58.0 H, RDW Coeff of Olesya 18.6 H, Plt Count 74 L, MPV 9.7, Neut % (Auto) Not Reportable, Absolute Neuts (auto) 6.4, Absolute Lymphs (auto) 0.42 L, Total Counted 100, Neutrophils % (Manual) 91 H, Lymphocytes % (Manual) 6 L, Monocytes % (Manual) 2, Eosinophils % (Manual) 1, Platelet Estimate MOD DEC, RBC Morphology N CHROM, Ovalocytes 1+, Stomatocytes ... 09/28/22 06:56: Sodium 145, Potassium 3.3 L, Chloride 117 H, Carbon Dioxide 22.0, Anion Gap 6, BUN 15, Creatinine 1.03, Estim Creat Clear Calc 94.81, Est GFR (MDRD) Af Amer 97, Est GFR (MDRD) Non-Af 80, BUN/Creatinine Ratio 14.6, Glucose 82, Calcium 8.3 L Micro: Microbiology 09/26/22 14:45 Sputum, Expectorated/Coughed Gram Stain - Final 09/26/22 14:45 Sputum, Expectorated/Coughed Respiratory Culture - Preliminary GNR lactose handstitching machine armhole feller GNR lactose handstitching machine armhole feller#2 09/25/22 14:45 Urine, Catheterized Urine Culture - Final Culture exhibits no growth. 09/25/22 14:30 Blood Culture (Wb) - Port Blood Culture - Preliminary No growth in 48 hours. 09/25/22 14:45 Blood Culture (Wb) - Port Blood Culture - Preliminary No growth in 48 hours. 09/25/22 14:55 Urine Catheter - Stallings Legionella Antigen - Final 09/25/22 14:55 Urine Catheter - Stallings Streptococcus pneumoniae Antigen (M - Final 09/25/22 15:37 Nasal Secretion SARS-CoV-2 & FLU Antigen (Rapid) - Final Physical Exam Narrative alert, oriented x3, no apparent distress and average body habitus General Appearance: cooperative, well kempt and well developed Orientation / Consciousness: awake, oriented to person, oriented to place and oriented to time HEENT normocephalic, head/scalp atraumatic and moist oral mucous membranes Eyes PERRL, EOMs intact bilaterally and conjunctivae normal Neck supple, no JVD, thyroid normal and no carotid bruits General: trachea midline Resp normal respiratory effort, no retractions, no use of accessory muscles and clear to auscultation bilaterally Auscultation: Negative for rales, rhonchi or wheezes Cardio regular rate, regular rhythm, S1 normal heart sound, S2 normal heart sound, no murmurs, no rub and no gallops GI normal to inspection, nondistended, normoactive bowel sounds, soft to palpation, non-tender and non-distended Extremity no clubbing, cyanosis or edema Skin no rashes or lesions noted General Skin Exam: no breakdown Neuro oriented x3, CN's II-XII intact bilaterally, moves all extremities, no focal motor deficits and no sensory deficits noted Sensorium / Orientation: awake, alert, oriented to person, oriented to place and oriented to time Speech: speech normal Psych affect normal Assessment & Plan Assessment/Plan (1) Aspiration pneumonia: (2) Septic shock: (3) Pneumonia: PLAN: Plan 1. Septic shock-suspected to be secondary to aspiration pneumonia, continue Zosyn, vancomycin was stopped. #2 bilateral lower lobe pneumonia, probable aspiration pneumonia-again patient is on Zosyn, he will continue to receive aerosol treatments. Critical care felt that the patient needed to be diuresed, he is now on some Lasix #3 neutropenia-at this time it is corrected #4 B-cell lymphoma-again patient had his last chemotherapy session last week #5 nausea/vomiting/diarrhea-etiology unclear at this point, the symptoms have resolved at this time, patient remains on a regular diet #6 hypoxia secondary to septic shock and pneumonia, patient's pulse ox will be monitored, supplemental oxygen will be administered, he is currently on nasal cannula oxygen at 3 L/min #7 headache-patient complains of a frontal headache, I am not sure what is causing this, I have elected to place him on Fioricet for headache. I do not feel sinus x-rays are necessary at this time. #8 hypokalemia-patient received supplemental potassium today, labs will be rechecked Total clinical time spent by myself addressing the patient's medical issues, reviewing all of the data, and collaborating with patient's care team: 36 minutes Charges/Coding Visit Charges Inpatient E&M: 28941 Subs Hosp L2
[2022-09-28] MEDS: Acetaminophen/Butalbital/Caffe 1 Tablet 2 TABLET PO (15:13)
[2022-09-28] MEDS: Furosemide 20 MG/2 ML VIAL IV (16:30)
[2022-09-28] MEDS: hydrOXYzine PAM 25 MG Capsule 50 MG PO (20:31)
[2022-09-29] VITALS (12 sets, daily range): BP systolic 121–145; BP diastolic 62–91; PULSE 77–99; RESP 16–37; TEMP 36.9–37.9; O2SAT 93–98; BMI 27.5
[2022-09-29 03:30] LABS: Absolute Neutrophil Count 6.5 X10^3/uL (2.0-7.7); Basophil# 0.03 X10^3/uL; Basophil% 0.4 % (0-1); Differential Indicated SCAN CRITERIA MET; Eosinophil# 0.04 X10^3/uL; Eosinophils% 0.5 % (0-5); Hematocrit 23.3 % (40-54); Hemoglobin 7.6 g/dL (13.0-16.5); Lymphocyte % 2.7 % (19-41); Mean Corp Hgb Conc 32.6 g/dL (32-36); Mean Platelet Vol. 10.5 fl (6.2-12.0); Monocyte# 0.46 X10^3/uL; Monocyte% 6.2 % (0-10); NRBC Flagged by Analyzer 0 % (0-5); Neutrophil # 6.51 X10^3/uL (2.7-7.7); Neutrophil % 88.3 % (47-70); POSITIVE COUNT YES; POSITIVE DIFFERENTIAL YES; POSITIVE MORPHOLOGY YES; Platelet Count 82 K/mm3 (150-450); RBC Distribution Width CV 18.3 % (11.6-14.6); RBC Distribution Width SD 57.1 fl (35.1-43.9); Red Blood Count 2.71 M/mm3 (4.6-6.2); White Blood Count 7.4 K/mm3 (4.4-11.0)
[2022-09-29 03:47] LABS: Anion Gap 7 (5-15); BUN 14 mg/dL (7-18); BUN/Creat Ratio 13.6 RATIO (10-20); Calcium,Total 8.3 mg/dL (8.5-10.1); Chloride 113 mmol/L (98-107); Creatinine, Serum 1.03 mg/dL (0.70-1.30); EST Glomerular Filtration Rate 80 mL/min (>60); Est Glom Filt Rate - Afr Amer 97 mL/min (>60); Estimated Creatinine Clearance 94.81 ml/min; Glucose 87 mg/dL (74-106); Sodium Level 146 mmol/L (136-145)
[2022-09-29 03:58] LABS: Differential Comment SCANNED
[2022-09-29 03:59] LABS: Ovalocyte 1+; Platelet Estimate MOD DEC (ADEQ)
[2022-09-29] MEDS: Acetaminophen/Butalbital/Caffe 1 Tablet 2 TABLET PO ×2 (04:52→17:05)
[2022-09-29] MEDS: Albuterol 2.5 MG/3 ML VIAL.NEB. INHALATION ×4 (06:58→20:14)
--- NOTE | 2022-09-29 08:06 | PN.HOSP_ITS ---
Reason for Visit Reason for Visit: Diagnoses Sepsis, unspecified organism (09/25/22) Neutropenia, unspecified (09/25/22) Pneumonia, unspecified organism (09/25/22) Pneumonitis due to inhalation of food and vomit (09/25/22) Fever presenting with conditions classified elsewhere (09/25/22) Severe sepsis with septic shock (09/25/22) Subjective Subjective Patient is a 52-year-old male with history of diffuse large B-cell lymphoma who presented with fever chills nausea vomiting and diarrhea. An assessment of septic shock secondary to aspiration pneumonia made admitted for subsequent inpatient management Objective Data Objective Data Vital Signs: Vital Signs Temp Pulse Resp BP Pulse Ox O2 Del Method O2 Flow Rate 98.8 F 88 18 122/82 H 96 Nasal Cannula 4 09/29/22 03:00 09/29/22 06:58 09/29/22 06:58 09/29/22 03:00 09/29/22 06:58 09/29/22 06:58 09/29/22 06:58 FiO2 49 09/26/22 13:47 Oxygen Flow Rate (L/min) 4 Oxygen Delivery Method Nasal Cannula Weight: 96.2 kg Body Mass Index (BMI) 27.5 Intake & Output: Intake and Output for Last 24 Hours 09/27/22 09/28/22 09/29/22 23:59 23:59 23:59 Intake Total 4677.42 / 4677.42 2976.67 / 2976.67 110 / 110 Output Total 2500 / 2500 6225 / 6225 Balance 2177.42 / 2177.42 -3248.33 / -3248.33 110 / 110 Lab / Micro Data Result Diagrams: 09/29/22 03:15 09/29/22 03:15 Labs: Laboratory Results - last 24 hr 09/29/22 03:15: WBC 7.4, RBC 2.71 L, Hgb 7.6 L, Hct 23.3 L, MCV 86.0, MCH 28.0, MCHC 32.6, RDW Std Deviation 57.1 H, RDW Coeff of Olesya 18.3 H, Plt Count 82 L, MPV 10.5, Immature Gran % (Auto) 1.900 H, Neut % (Auto) 88.3 H, Lymph % (Auto) 2.7 L, [place] % (Auto) 6.2, Eos % (Auto) 0.5, Baso % (Auto) 0.4, Absolute Neuts (auto) 6.5, Absolute Lymphs (auto) 0.20 L, Nucleated RBC % 0, Differential Comment SCANNED, Platelet Estimate MOD DEC, Ovalocytes 1+ 09/29/22 03:15: Sodium 146 H, Potassium 3.0 L, Chloride 113 H, Carbon Dioxide 26.0, Anion Gap 7, BUN 14, Creatinine 1.03, Estim Creat Clear Calc 94.81, Est GFR (MDRD) Af Amer 97, Est GFR (MDRD) Non-Af 80, BUN/Creatinine Ratio 13.6, Glucose 87, Calcium 8.3 L Micro: Microbiology 09/26/22 14:45 Sputum, Expectorated/Coughed Gram Stain - Final 09/26/22 14:45 Sputum, Expectorated/Coughed Respiratory Culture - Final Klebsiella pneumoniae sp pneum Escherichia coli 09/25/22 14:45 Urine, Catheterized Urine Culture - Final Culture exhibits no growth. 09/25/22 14:30 Blood Culture (Wb) - Port Blood Culture - Preliminary No growth in 48 hours. 09/25/22 14:45 Blood Culture (Wb) - Port Blood Culture - Preliminary No growth in 48 hours. 09/25/22 14:55 Urine Catheter - Stallings Legionella Antigen - Final 09/25/22 14:55 Urine Catheter - Stallings Streptococcus pneumoniae Antigen (M - Final 09/25/22 15:37 Nasal Secretion SARS-CoV-2 & FLU Antigen (Rapid) - Final Radiography Diagnostic Testing: Radiology Impression Chest X-Ray 09/28/22 08:11 IMPRESSION: Increasing bilateral lower lobe infiltrates Electronically Signed: Robert Farah MD at 21:48 EDT Reading Location ID and State: [facility] / [place] , Service support , Physical Exam Narrative GENERAL: cooperative but appears ill looking HEENT: Atraumatic; normocephalic EYES; Anicteric, Normal Conjunctiva NECK; supple, normal thyroid, RESPIRATORY: Diminished to auscultation CARDIOVASCULAR: Regular S1 S2, GI: soft, normoactive bowel sounds, : No Renal angle tenderness; EXTREMITIES: No edema, no clubbing, MUSCULOSKELETAL: no muscle wasting NEURO: Awake; no lateralizing signs. SKIN: No Rash PSYCH; Flat affect Assessment & Plan Assessment/Plan (1) Aspiration pneumonia: (2) Septic shock: (3) Pneumonia: PLAN: Plan Patient is a 52-year-old male with history of diffuse large B-cell lymphoma who presented with fever chills nausea vomiting and diarrhea. An assessment of septic shock secondary to aspiration pneumonia made admitted for subsequent inpatient management 1. Septic shock ? Secondary to combination of aspiration pneumonia as well as neutropenic fever. Patient was admitted to the intensive care unit managed with aggressive IV fluid resuscitation as well as broad-spectrum antibiotic therapy after cultures have been sent ? Patient sputum cultures came back positive for Klebsiella pneumonia as well as E. coli. Patient remains on Zosyn 2. Neutropenic fever ? Patient presented with septic shock management as discussed above 3. Diffuse large B-cell lymphoma ? Managed by oncology as outpatient 4. Acute hypoxia ? Secondary to aspiration pneumonia patient was placed on supplemental oxygen 5. Hypokalemia ? Corrected per protocol repeat labs ordered for monitoring 6.Anemia ? Secondary to combination of anemia anemia as a result of patient underlying malignancy as well as chemo induced anemia monitoring H&H with plans to transfuse if patient becomes symptomatic or hemoglobin falls below 7 7. Chemo induced thrombocytopenia ? Monitoring 8. Chemo induced pancytopenia ? Management as discussed above 9. DVT prophylaxis ? Avoided the use of chemoprophylaxis given patient low platelet count as well as anemia SCDs HCTZ Time spent in the patient's overall evaluation,decision-making process, review of diagnostic data, adjustment of management, discussion with other providers, nursing nursing and ancillary staff involved in patient's care documentation, 50 Minutes Charges/Coding Visit Charges Inpatient E&M: 211[address] [facility] L3
[2022-09-29] MEDS: Famotidine 20 MG Tablet PO ×2 (09:57→20:48)
[2022-09-29] MEDS: Allopurinol 300 MG Tablet PO (09:57)
[2022-09-29] MEDS: Heparin Injection (Vial) 5,000 UNIT/ML VIAL 5000 UNIT SC ×2 (09:58→20:48)
[2022-09-29] MEDS: Acetaminophen 325 MG Tablet 650 MG PO (09:58)
[2022-09-29] MEDS: Acyclovir 200 MG Capsule 400 MG PO ×2 (09:58→20:48)
[2022-09-29] MEDS: Potassium Chloride 10mEq/100mL 10 MEQ/100 ML IV.SOLN. 100 MEQ IV BOLUS ×4 (09:58→13:35)
[2022-09-29 11:49] LABS: Pathologist Review Reviewed
[2022-09-29 11:50] LABS: Pathologist Review Reviewed
[2022-09-29 11:50] LABS: Pathologist Review Reviewed
[2022-09-29] MEDS: Potassium Chloride Oral Tablet 20 MEQ PO (18:09)
[2022-09-29] MEDS: hydrOXYzine PAM 25 MG Capsule 50 MG PO (20:48)
[2022-09-30] VITALS (14 sets, daily range): BP systolic 137–150; BP diastolic 86–92; PULSE 91–101; RESP 17–20; TEMP 36.8–37.4; O2SAT 90–96; BMI 26.8
[2022-09-30] MEDS: Acetaminophen/Butalbital/Caffe 1 Tablet 2 TABLET PO ×4 (03:21→23:23)
[2022-09-30 03:47] LABS: Absolute Lymphocyte Count 0.25 X10^3/uL (0.83-4.51); Absolute Neutrophil Count 4.6 X10^3/uL (2.0-7.7); Basophil# 0.03 X10^3/uL; Basophil% 0.6 % (0-1); Differential Indicated SCAN CRITERIA MET; Eosinophil# 0.04 X10^3/uL; Eosinophils% 0.7 % (0-5); Hematocrit 24.7 % (40-54); Lymphocyte # 0.25 X10^3/ul (0.83-4.51); Lymphocyte % 4.6 % (19-41); Mean Corp Hgb Conc 32.4 g/dL (32-36); Mean Corpuscular Volume 86.4 fL (80-94); Mean Platelet Vol. 9.8 fl (6.2-12.0); Monocyte# 0.44 X10^3/uL; Monocyte% 8.1 % (0-10); NRBC Flagged by Analyzer 0 % (0-5); Neutrophil # 4.57 X10^3/uL (2.7-7.7); POSITIVE COUNT YES; POSITIVE DIFFERENTIAL YES; Platelet Count 84 K/mm3 (150-450); RBC Distribution Width CV 17.9 % (11.6-14.6); RBC Distribution Width SD 56.7 fl (35.1-43.9); Red Blood Count 2.86 M/mm3 (4.6-6.2); White Blood Count 5.4 K/mm3 (4.4-11.0)
[2022-09-30] MEDS: Albuterol 2.5 MG/3 ML VIAL.NEB. INHALATION ×5 (03:52→23:07)
--- NOTE | 2022-09-30 03:54 | CPS ---
patient requested prn treatment due to coughing.
[2022-09-30 03:58] LABS: Anion Gap 8 (5-15); BUN 11 mg/dL (7-18); BUN/Creat Ratio 11.3 RATIO (10-20); Calcium,Total 8.1 mg/dL (8.5-10.1); Chloride 114 mmol/L (98-107); Creatinine, Serum 0.97 mg/dL (0.70-1.30); EST Glomerular Filtration Rate 86 mL/min (>60); Est Glom Filt Rate - Afr Amer 104 mL/min (>60); Estimated Creatinine Clearance 100.68 ml/min; Glucose 92 mg/dL (74-106); Magnesium 1.6 mg/dL (1.6-2.6); Potassium 2.9 mmol/L (3.5-5.1); Sodium Level 144 mmol/L (136-145)
[2022-09-30 04:36] LABS: Anisocytosis 1+
[2022-09-30] MEDS: Potassium Chloride 10mEq/100mL 10 MEQ/100 ML IV.SOLN. 100 MEQ IV BOLUS ×8 (05:42→16:28)
[2022-09-30] MEDS: 0.9% Saline Lock 10 ML Syringe IV ×2 (05:45→21:02)
--- NOTE | 2022-09-30 07:51 | PN.HOSP_ITS ---
Reason for Visit Reason for Visit: Diagnoses Sepsis, unspecified organism (09/25/22) Neutropenia, unspecified (09/25/22) Pneumonia, unspecified organism (09/25/22) Pneumonitis due to inhalation of food and vomit (09/25/22) Fever presenting with conditions classified elsewhere (09/25/22) Severe sepsis with septic shock (09/25/22) Subjective Subjective Seen complains of feeling weak. Diagnostic data reviewed significant for hypokalemia. Objective Data Objective Data Vital Signs: Vital Signs Temp Pulse Resp BP Pulse Ox O2 Del Method O2 Flow Rate 99.4 F H 92 18 139/86 H 92 Nasal Cannula 3 09/30/22 02:45 09/30/22 03:54 09/30/22 03:54 09/30/22 02:45 09/30/22 03:55 09/30/22 04:39 09/30/22 04:39 FiO2 49 09/26/22 13:47 Oxygen Flow Rate (L/min) 3 Oxygen Delivery Method Nasal Cannula Weight: 93.7 kg Body Mass Index (BMI) 26.8 Intake & Output: Intake and Output for Last 24 Hours 09/28/22 09/29/22 09/30/22 23:59 23:59 23:59 Intake Total 2976.67 / 2976.67 1306.67 / 1306.67 210 / 210 Output Total 6225 / 6225 Balance -3248.33 / -3248.33 1306.67 / 1306.67 210 / 210 Lab / Micro Data Result Diagrams: 09/30/22 03:35 09/30/22 03:35 Labs: Laboratory Results - last 24 hr 09/25/22 14:30: Diff Path Review Reviewed 09/26/22 03:35: Diff Path Review Reviewed 09/27/22 03:30: Diff Path Review Reviewed 09/30/22 03:35: WBC 5.4, RBC 2.86 L, Hgb 8.0 L, Hct 24.7 L, MCV 86.4, MCH 28.0, MCHC 32.4, RDW Std Deviation 56.7 H, RDW Coeff of Olesya 17.9 H, Plt Count 84 L, MPV 9.8, Immature Gran % (Auto) 2.000 H, Neut % (Auto) 84.0 H, Lymph % (Auto) 4.6 L, [place] % (Auto) 8.1, Eos % (Auto) 0.7, Baso % (Auto) 0.6, Absolute Neuts (auto) 4.6, Absolute Lymphs (auto) 0.25 L, Nucleated RBC % 0, Anisocytosis 1+ 09/30/22 03:35: Sodium 144, Potassium 2.9 L, Chloride 114 H, Carbon Dioxide 22.0, Anion Gap 8, BUN 11, Creatinine 0.97, Estim Creat Clear Calc 100.68, Est GFR (MDRD) Af Amer 104, Est GFR (MDRD) Non-Af 86, BUN/Creatinine Ratio 11.3, Glucose 92, Calcium 8.1 L, Phosphorus 3.0, Magnesium 1.6 Micro: Microbiology 09/26/22 14:45 Sputum, Expectorated/Coughed Gram Stain - Final 09/26/22 14:45 Sputum, Expectorated/Coughed Respiratory Culture - Final Klebsiella pneumoniae sp pneum Escherichia coli 09/25/22 14:45 Urine, Catheterized Urine Culture - Final Culture exhibits no growth. 09/25/22 14:30 Blood Culture (Wb) - Port Blood Culture - Preliminary No growth in 48 hours. 09/25/22 14:45 Blood Culture (Wb) - Port Blood Culture - Preliminary No growth in 48 hours. 09/25/22 14:55 Urine Catheter - Stallings Legionella Antigen - Final 09/25/22 14:55 Urine Catheter - Stallings Streptococcus pneumoniae Antigen (M - Final 09/25/22 15:37 Nasal Secretion SARS-CoV-2 & FLU Antigen (Rapid) - Final Radiography Diagnostic Testing: Radiology Impression Abdomen/Pelvis CT 09/25/22 14:12 IMPRESSION: (NOT LISTED IN ORDER OF SIGNIFICANCE) In a triangular pattern along the course of a branch of the left SMA, there is a soft tissue mass measuring 10.5 x 5.9cm. This is likely related to the patient''s known history of lymphoma. This mass abuts the small bowel where there is overlying wall thickening and inflammation. Neoplastic invasion is not excluded. This is causing a partial small bowel obstruction. Diffuse lower lobe pneumonia. Non obstructive 2 mm left renal parenchymal stones. There is hepatomegaly with diffuse hepatic enlargement. Other findings as above. Electronically Signed: Rohan Gilliam MD at 16:09 EDT , Physical Exam Narrative GENERAL: cooperative but appears ill looking HEENT: Atraumatic; normocephalic EYES; Anicteric, Normal Conjunctiva NECK; supple, normal thyroid, RESPIRATORY: Diminished to auscultation CARDIOVASCULAR: Regular S1 S2, GI: soft, normoactive bowel sounds, : No Renal angle tenderness; EXTREMITIES: No edema, no clubbing, MUSCULOSKELETAL: no muscle wasting NEURO: Awake; no lateralizing signs. SKIN: No Rash PSYCH; Flat affect Assessment & Plan Assessment/Plan (1) Aspiration pneumonia: (2) Septic shock: (3) Pneumonia: PLAN: Plan Patient is a 52-year-old male with history of diffuse large B-cell lymphoma who presented with fever chills nausea vomiting and diarrhea. An assessment of septic shock secondary to aspiration pneumonia made admitted for subsequent inpatient management 1. Septic shock ? Secondary to combination of aspiration pneumonia as well as neutropenic fever. Patient was admitted to the intensive care unit managed with aggressive IV fluid resuscitation as well as broad-spectrum antibiotic therapy after cultures have been sent ? Patient sputum cultures came back positive for Klebsiella pneumonia as well as E. coli. Patient remains on Zosyn ? 09/30/2022; patient continues to spike low-grade fever remains on broad- spectrum antibiotic therapy 2. Neutropenic fever ? Patient presented with septic shock management as discussed above 3. Diffuse large B-cell lymphoma ? Managed by oncology as outpatient 4. Acute hypoxic respiratory failure (present on admission) ? Secondary to aspiration pneumonia patient was placed on supplemental oxygen 5. Hypokalemia ? Corrected per protocol repeat labs ordered for monitoring ? 09/30/2022; patient potassium level still low despite aggressive resuscitation 6.Anemia ? Secondary to combination of anemia anemia as a result of patient underlying malignancy as well as chemo induced anemia monitoring H&H with plans to transfuse if patient becomes symptomatic or hemoglobin falls below 7 7. Chemo induced thrombocytopenia ? Monitoring 8. Chemo induced pancytopenia ? Management as discussed above 9. DVT prophylaxis ? Avoided the use of chemoprophylaxis given patient low platelet count as well as anemia SCDs HCTZ Time spent in the patient's overall evaluation,decision-making process, review of diagnostic data, adjustment of management, discussion with other providers, nursing nursing and ancillary staff involved in patient's care documentation, 35 Minutes Charges/Coding Visit Charges Inpatient E&M: 53216 Subs Hosp L2
[2022-09-30] MEDS: Potassium Chloride Oral Tablet 20 MEQ 40 MEQ PO (09:02)
[2022-09-30] MEDS: Heparin Injection (Vial) 5,000 UNIT/ML VIAL 5000 UNIT SC ×2 (09:03→21:00)
[2022-09-30] MEDS: Allopurinol 300 MG Tablet PO (09:03)
[2022-09-30] MEDS: Potassium Chloride Oral Tablet 20 MEQ PO ×2 (09:03→16:31)
[2022-09-30] MEDS: Acyclovir 200 MG Capsule 400 MG PO ×2 (09:03→21:01)
[2022-09-30] MEDS: Famotidine 20 MG Tablet PO ×2 (09:03→21:01)
[2022-09-30] MEDS: Sodium Chloride 0.65% 1 SPRAY SPRAY.BTL 2 SPRAY NASAL ×2 (16:30→21:02)
[2022-09-30] MEDS: Acetaminophen 325 MG Tablet 650 MG PO (21:00)
[2022-09-30] MEDS: hydrOXYzine PAM 25 MG Capsule 50 MG PO (21:01)
[2022-10-01] VITALS (9 sets, daily range): BP systolic 128–136; BP diastolic 78–91; PULSE 82–106; RESP 16–20; TEMP 36.6–37.1; O2SAT 88–98; BMI 26.2
[2022-10-01] MEDS: Sodium Chloride 0.65% 1 SPRAY SPRAY.BTL 2 SPRAY NASAL ×2 (05:26→14:41)
[2022-10-01] MEDS: Acetaminophen/Butalbital/Caffe 1 Tablet 2 TABLET PO ×2 (05:26→14:42)
[2022-10-01 06:19] LABS: Absolute Lymphocyte Count 0.32 X10^3/uL (0.83-4.51); Absolute Neutrophil Count 4.7 X10^3/uL (2.0-7.7); Basophil# 0.03 X10^3/uL; Basophil% 0.5 % (0-1); Eosinophil# 0.03 X10^3/uL; Eosinophils% 0.5 % (0-5); Hematocrit 25.4 % (40-54); Hemoglobin 8.3 g/dL (13.0-16.5); Lymphocyte # 0.32 X10^3/ul (0.83-4.51); Lymphocyte % 5.4 % (19-41); Mean Corp Hgb Conc 32.7 g/dL (32-36); Mean Corpuscular Hgb 27.9 pg (27.0-32.0); Mean Corpuscular Volume 85.2 fL (80-94); Mean Platelet Vol. 10.4 fl (6.2-12.0); Monocyte# 0.62 X10^3/uL; Monocyte% 10.5 % (0-10); NRBC Flagged by Analyzer 0 % (0-5); Neutrophil # 4.74 X10^3/uL (2.7-7.7); Neutrophil % 79.9 % (47-70); POSITIVE DIFFERENTIAL YES; Platelet Count 110 K/mm3 (150-450); RBC Distribution Width CV 17.3 % (11.6-14.6); RBC Distribution Width SD 54.3 fl (35.1-43.9); Red Blood Count 2.98 M/mm3 (4.6-6.2); White Blood Count 5.9 K/mm3 (4.4-11.0)
[2022-10-01 06:21] LABS: Differential Indicated SCAN CRITERIA MET
[2022-10-01 06:46] LABS: Anion Gap 7 (5-15); BUN 12 mg/dL (7-18); BUN/Creat Ratio 13.6 RATIO (10-20); Calcium,Total 8.7 mg/dL (8.5-10.1); Chloride 113 mmol/L (98-107); Creatinine, Serum 0.88 mg/dL (0.70-1.30); EST Glomerular Filtration Rate 96 mL/min (>60); Est Glom Filt Rate - Afr Amer 116 mL/min (>60); Estimated Creatinine Clearance 110.97 ml/min; Glucose 90 mg/dL (74-106); Potassium 3.9 mmol/L (3.5-5.1); Sodium Level 142 mmol/L (136-145)
[2022-10-01 06:55] LABS: Anisocytosis 1+; Platelet Estimate SLT DEC (ADEQ)
[2022-10-01] MEDS: Albuterol 2.5 MG/3 ML VIAL.NEB. INHALATION ×2 (07:06→13:01)
[2022-10-01] MEDS: Potassium Chloride Oral Tablet 20 MEQ PO (08:35)
[2022-10-01] MEDS: Allopurinol 300 MG Tablet PO (08:35)
[2022-10-01] MEDS: Famotidine 20 MG Tablet PO (08:35)
[2022-10-01] MEDS: Acyclovir 200 MG Capsule 400 MG PO (08:35)
[2022-10-01] MEDS: Heparin Injection (Vial) 5,000 UNIT/ML VIAL 5000 UNIT SC (11:15)
--- NOTE | 2022-10-01 11:44 | PCM.PN.HOSP ---
Reason for Visit Reason for Visit: Diagnoses Sepsis, unspecified organism (09/25/22) Neutropenia, unspecified (09/25/22) Pneumonia, unspecified organism (09/25/22) Pneumonitis due to inhalation of food and vomit (09/25/22) Fever presenting with conditions classified elsewhere (09/25/22) Severe sepsis with septic shock (09/25/22) Subjective Subjective Patient seen admit improvement in his overall clinical condition. Plan is for patient to be discharged home Objective Data Objective Data Vital Signs: Vital Signs Temp Pulse Resp BP Pulse Ox O2 Del Method O2 Flow Rate 98.8 F 91 18 132/78 H 93 Nasal Cannula 1 10/01/22 09:00 10/01/22 09:00 10/01/22 09:00 10/01/22 09:00 10/01/22 10:30 10/01/22 09:02 10/01/22 10:30 FiO2 49 09/26/22 13:47 Oxygen Flow Rate (L/min) [ 1 AMBULATING with Oxygen #1] Oxygen Flow Rate (L/min) 3 Oxygen Delivery Method Nasal Cannula Weight: 91.6 kg Body Mass Index (BMI) 26.2 Intake & Output: Intake and Output for Last 24 Hours 09/29/22 09/30/22 10/01/22 23:59 23:59 23:59 Intake Total 1306.67 / 1306.67 1714 / 1714 50 / 50 Balance 1306.67 / 1306.67 1714 / 1714 50 / 50 Lab / Micro Data Result Diagrams: 10/01/22 05:25 10/01/22 05:25 Labs: Laboratory Results - last 24 hr 10/01/22 05:25: WBC 5.9, RBC 2.98 L, Hgb 8.3 L, Hct 25.4 L, MCV 85.2, MCH 27.9, MCHC 32.7, RDW Std Deviation 54.3 H, RDW Coeff of Olesya 17.3 H, Plt Count 110 L, MPV 10.4, Immature Gran % (Auto) 3.200 H, Neut % (Auto) 79.9 H, Lymph % (Auto) 5.4 L, [place] % (Auto) 10.5 H, Eos % (Auto) 0.5, Baso % (Auto) 0.5, Absolute Neuts (auto) 4.7, Absolute Lymphs (auto) 0.32 L, Nucleated RBC % 0, Platelet Estimate SLT DEC, Anisocytosis 1+ 10/01/22 05:25: Sodium 142, Potassium 3.9, Chloride 113 H, Carbon Dioxide 22.0, Anion Gap 7, BUN 12, Creatinine 0.88, Estim Creat Clear Calc 110.97, Est GFR (MDRD) Af Amer 116, Est GFR (MDRD) Non-Af 96, BUN/Creatinine Ratio 13.6, Glucose 90, Calcium 8.7 Micro: Microbiology 09/30/22 23:29 Stool C. difficile GDH Antigen & Toxins - Final 09/25/22 14:45 Blood Culture (Wb) - Port Blood Culture - Final No growth in 5 days. 09/25/22 14:30 Blood Culture (Wb) - Port Blood Culture - Final No growth in 5 days. 09/26/22 14:45 Sputum, Expectorated/Coughed Gram Stain - Final 09/26/22 14:45 Sputum, Expectorated/Coughed Respiratory Culture - Final Klebsiella pneumoniae sp pneum Escherichia coli 09/25/22 14:45 Urine, Catheterized Urine Culture - Final Culture exhibits no growth. 09/25/22 14:55 Urine Catheter - Stallings Legionella Antigen - Final 09/25/22 14:55 Urine Catheter - Stallings Streptococcus pneumoniae Antigen (M - Final 09/25/22 15:37 Nasal Secretion SARS-CoV-2 & FLU Antigen (Rapid) - Final Physical Exam Narrative GENERAL: cooperative HEENT: Atraumatic; normocephalic EYES; Anicteric, Normal Conjunctiva NECK; supple, normal thyroid, RESPIRATORY: Diminished to auscultation CARDIOVASCULAR: Regular S1 S2, GI: soft, normoactive bowel sounds, : No Renal angle tenderness; EXTREMITIES: No edema, no clubbing, MUSCULOSKELETAL: no muscle wasting NEURO: Awake; no lateralizing signs. SKIN: No Rash PSYCH; Flat affect Assessment & Plan Assessment/Plan (1) Aspiration pneumonia: (2) Septic shock: (3) Pneumonia: PLAN: Plan Patient is a 52-year-old male with history of diffuse large B-cell lymphoma who presented with fever chills nausea vomiting and diarrhea. An assessment of septic shock secondary to aspiration pneumonia made admitted for subsequent inpatient management 1. Septic shock ? Secondary to combination of aspiration pneumonia as well as neutropenic fever. Patient was admitted to the intensive care unit managed with aggressive IV fluid resuscitation as well as broad-spectrum antibiotic therapy after cultures have been sent ? Patient sputum cultures came back positive for Klebsiella pneumonia as well as E. coli. Patient remains on Zosyn ? 09/30/2022; patient continues to spike low-grade fever remains on broad-spectrum antibiotic therapy 2. Neutropenic fever ? Patient presented with septic shock management as discussed above 3. Diffuse large B-cell lymphoma ? Managed by oncology as outpatient 4. Acute hypoxic respiratory failure (present on admission) ? Secondary to aspiration pneumonia patient was placed on supplemental oxygen ? 10/01/2022 patient was assessed for home oxygen which he did qualify. Patient will need oxygen with portability since he is active both at home as well as in the community. 5. Hypokalemia ? Corrected per protocol repeat labs ordered for monitoring ? 09/30/2022; patient potassium level still low despite aggressive resuscitation 6.Anemia ? Secondary to combination of anemia anemia as a result of patient underlying malignancy as well as chemo induced anemia monitoring H&H with plans to transfuse if patient becomes symptomatic or hemoglobin falls below 7 7. Chemo induced thrombocytopenia ? Monitoring 8. Chemo induced pancytopenia ? Management as discussed above 9. DVT prophylaxis ? Avoided the use of chemoprophylaxis given patient low platelet count as well as anemia SCDs HCTZ Time spent in the patient's overall evaluation,decision-making process, review of diagnostic data, adjustment of management, discussion with other providers, nursing nursing and ancillary staff involved in patient's care documentation, 35 Minutes Charges/Coding Visit Charges Inpatient E&M: 22829 Subs Hosp L2
--- NOTE | 2022-10-01 11:46 | DS.PCM_ITS ---
Providers Date of Admission: 09/25/22 Date of Discharge: 10/01/22 Primary Care Physician: Dr. Cricket Babcock MD Consultations 09/25/22 19:28 Consult: Criminal Legal Assistant / Pulmonary Medicine Routine Consulting Provider: Pulmonary Medicine luli Rangel Reason for Consult: septic shock EMERGENT Consult: No MD Notified: Yes Date Notified: 09/25/22 Time Notified: 18:57 Method of Notification: Verbal Reason For Visit: SEPTIC SHOCK, NEUTROPENIA Diagnosis Discharge Diagnosis (1) Aspiration pneumonia: Status: Acute Code(s): J69.0 - Pneumonitis due to inhalation of food and vomit (2) Septic shock: Status: Acute Code(s): A41.9 - Sepsis, unspecified organism; R65.21 - Severe sepsis with septic shock (3) Pneumonia: Status: Acute Code(s): J18.9 - Pneumonia, unspecified organism Plan Patient is a 52-year-old male with history of diffuse large B-cell lymphoma who presented with fever chills nausea vomiting and diarrhea. An assessment of septic shock secondary to aspiration pneumonia made admitted for subsequent inpatient management 1. Septic shock ? Secondary to combination of aspiration pneumonia as well as neutropenic fever. Patient was admitted to the intensive care unit managed with aggressive IV fluid resuscitation as well as broad-spectrum antibiotic therapy after cultures have been sent ? Patient sputum cultures came back positive for Klebsiella pneumonia as well as E. coli. Patient remains on Zosyn ? 09/30/2022; patient continues to spike low-grade fever remains on broad- spectrum antibiotic therapy 2. Neutropenic fever ? Patient presented with septic shock management as discussed above 3. Diffuse large B-cell lymphoma ? Managed by oncology as outpatient 4. Acute hypoxic respiratory failure (present on admission) ? Secondary to aspiration pneumonia patient was placed on supplemental oxygen ? 10/01/2022 patient was assessed for home oxygen which he did qualify. Patient will need oxygen with portability since he is active both at home as well as in the community. 5. Hypokalemia ? Corrected per protocol repeat labs ordered for monitoring ? 09/30/2022; patient potassium level still low despite aggressive resuscitation 6.Anemia ? Secondary to combination of anemia anemia as a result of patient underlying malignancy as well as chemo induced anemia monitoring H&H with plans to transfuse if patient becomes symptomatic or hemoglobin falls below 7 7. Chemo induced thrombocytopenia ? Monitoring 8. Chemo induced pancytopenia ? Management as discussed above 9. DVT prophylaxis ? Avoided the use of chemoprophylaxis given patient low platelet count as well as anemia SCDs HCTZ Time spent in the patient's overall evaluation,decision-making process, review of diagnostic data, adjustment of management, discussion with other providers, nursing nursing and ancillary staff involved in patient's care documentation, 35 Minutes Medications at Discharge Home Medications acyclovir 400 mg tablet 400 mg PO BID 09/25/22 allopurinol 300 mg tablet 300 mg PO DAILY 09/25/22 dexamethasone 4 mg tablet 4 mg PO DAILY 09/25/22 olanzapine 10 mg tablet 10 mg PO QHS 09/25/22 prochlorperazine maleate 10 mg tablet 10 mg PO Q6H PRN Nausea 09/25/22 acetaminophen 325 mg tablet 650 mg PO Q4H PRN PRN Pain 1-10 Or Fever #0 tabs 10/01/22 levofloxacin 750 mg tablet 750 mg PO DAILY #7 tabs 10/01/22 potassium chloride 20 mEq tablet,extended release(part/cryst) (Klor-Con M) 20 meq PO BIDCM #60 tabs 10/01/22 sodium chloride 0.65 % nasal spray aerosol (Deep Sea Nasal) 2 spray NASAL TID PRN PRN NASAL DRYNESS #44 mL 10/01/22 Hospital Course Summary of Care Provided Minutes Spent on Discharge: 35 Physical Exam Narrative GENERAL: cooperative HEENT: Atraumatic; normocephalic EYES; Anicteric, Normal Conjunctiva NECK; supple, normal thyroid, RESPIRATORY: Diminished to auscultation CARDIOVASCULAR: Regular S1 S2, GI: soft, normoactive bowel sounds, : No Renal angle tenderness; EXTREMITIES: No edema, no clubbing, MUSCULOSKELETAL: no muscle wasting NEURO: Awake; no lateralizing signs. SKIN: No Rash PSYCH; Flat affect Weight / BMI Weight Weight: 91.6 kg Body Mass Index (BMI) 26.2 ABG / Lab / Microbiology Data Result Diagrams: 10/01/22 05:25 10/01/22 05:25 Laboratory: Laboratory Results - last 24 hr 10/01/22 05:25: WBC 5.9, RBC 2.98 L, Hgb 8.3 L, Hct 25.4 L, MCV 85.2, MCH 27.9, MCHC 32.7, RDW Std Deviation 54.3 H, RDW Coeff of [place]lesya 17.3 H, Plt Count 110 L, MPV 10.4, Immature Gran % (Auto) 3.200 H, Neut % (Auto) 79.9 H, Lymph % (Auto) 5.4 L, [place] % (Auto) 10.5 H, Eos % (Auto) 0.5, Baso % (Auto) 0.5, Absolute Neuts (auto) 4.7, Absolute Lymphs (auto) 0.32 L, Nucleated RBC % 0, Platelet Estimate SLT DEC, Anisocytosis 1+ 10/01/22 05:25: Sodium 142, Potassium 3.9, Chloride 113 H, Carbon Dioxide 22.0, Anion Gap 7, BUN 12, Creatinine 0.88, Estim Creat Clear Calc 110.97, Est GFR (MDRD) Af Amer 116, Est GFR (MDRD) Non-Af 96, BUN/Creatinine Ratio 13.6, Glucose 90, Calcium 8.7 Microbiology: Microbiology 09/30/22 23:29 Stool C. difficile GDH Antigen & Toxins - Final 09/25/22 14:45 Blood Culture (Wb) - Port Blood Culture - Final No growth in 5 days. 09/25/22 14:30 Blood Culture (Wb) - Port Blood Culture - Final No growth in 5 days. 09/26/22 14:45 Sputum, Expectorated/Coughed Gram Stain - Final 09/26/22 14:45 Sputum, Expectorated/Coughed Respiratory Culture - Final Klebsiella pneumoniae sp pneum Escherichia coli 09/25/22 14:45 Urine, Catheterized Urine Culture - Final Culture exhibits no growth. 09/25/22 14:55 Urine Catheter - Stallings Legionella Antigen - Final 09/25/22 14:55 Urine Catheter - Stallings Streptococcus pneumoniae Antigen (M - Final 09/25/22 15:37 Nasal Secretion SARS-CoV-2 & FLU Antigen (Rapid) - Final D/C Instructions Discharge Diet: No restrictions Discharge Activity: Return to Normal Activity Call your doctor if you observe: Fever of 101 or Higher, Shortness of breath, Fainting spells and Chest pain Meaningful Use Info Meaningful Use Diagnoses (Choose all that apply): None applicable Discharge Plan Admission Admit Date/Time: 09/25/22 18:51 Attending Provider: Alton Jaimes Primary Care Provider: Cricket Babcock Consulting Providers: Sanjiv Martin ; Cj Fernandez ; Edward Rubio ; Phillip Way ; Nemo Calderón DEPUTY CORONER INVESTIGATOR ; Wally Nowak Discharge Orders/Prescriptions Prescriptions: New acetaminophen 325 mg Tablet 650 mg PO Q4H PRN PRN (Reason: Pain 1-10 Or Fever) Qty: 0 0RF potassium chloride [Klor-Con M20] 20 mEq Tablet,Er Particles/Crystals 20 meq PO BIDCM Qty: 60 0RF Deep Sea Nasal 0.65 % Aerosol,Riesel 2 spray NASAL TID PRN PRN (Reason: NASAL DRYNESS) Qty: 44 0RF levofloxacin 750 mg tablet 750 mg PO DAILY Qty: 7 0RF Continued olanzapine 10 mg tablet 10 mg PO QHS Label Comments: TAKE 1 TABLET BY MOUTH ONCE DAILY AT BEDTIME FOR 4 NIGHTS BEGINNING THE NIGHT OF CHEMOTHERAPY TREATMENT Rx Instructions: x4 nights after chemo prochlorperazine maleate 10 mg tablet 10 mg PO Q6H PRN (Reason: Nausea) Label Comments: TAKE 1 TABLET BY MOUTH EVERY 6 HOURS NEEDED acyclovir 400 mg tablet 400 mg PO BID Label Comments: TAKE 1 TABLET BY MOUTH TWICE DAILY dexamethasone 4 mg tablet 4 mg PO DAILY Label Comments: TAKE 1 TABLET BY MOUTH TWICE DAILY WITH FOOD FOR 3 DAYS BEGINNING THE DAY AFTER CHEMOTHERAPY TREATMENT Rx Instructions: after chemo x3 days allopurinol 300 mg tablet 300 mg PO DAILY Label Comments: TAKE 1 TABLET BY MOUTH ONCE DAILY Referrals / Follow Up: Cricket Babcock MD [Primary Care Provider] - In 1 Week Jacek Esteves DO [Med Staff - Active Staff] - In 1 Week Disposition Disposition (needs filled in before D/C Order can be placed): Home, Self Care Charges/Coding Visit Charges Inpatient E&M: 57532 Disch Hosp >30min
--- NOTE | 2022-10-01 12:15 | CASEMGMT ---
RN EDY notified that patient will need home oxygen at discharge. Script received. BERTA SNOW to patient's room to discuss home oxygen setup. Patient prefers [employer] after reviewing DME agencies. Patient denied further needs at discharge. [place] [facility] [place]'s room.
--- NOTE | 2022-10-01 13:58 | PHA.DC.MC ---
Pharmacy Service has performed discharge medication reconciliation and counseling for this patient. The patient was counseled on the following discharge medications and changes in medications for homegoing were reviewed. 1. LEVOFLOXACIN 2. POTASSIUM CHLORIDE 3. ALBUTEROL, NASAL SPRAY, TYLENOL The Reason for Use, instructions for use, and potential side effects were reviewed for all new medications. The patient's questions regarding all of their medications were answered. The patient was able to verbally demonstrate an understanding of their discharge medications. Home Medications acyclovir 400 mg tablet 400 mg PO BID anti viral 09/25/22 allopurinol 300 mg tablet 300 mg PO DAILY gout 09/25/22 dexamethasone 4 mg tablet 4 mg PO DAILY inflammation 09/25/22 olanzapine 10 mg tablet 10 mg PO QHS mental health 09/25/22 prochlorperazine maleate 10 mg tablet 10 mg PO Q6H PRN Nausea 09/25/22 acetaminophen 325 mg tablet 650 mg PO Q4H PRN PRN Pain 1-10 Or Fever #0 tabs 10/01/22 albuterol sulfate 0.63 mg/3 mL solution for nebulization 0.63 mg (3 mL) inhalation Q4H PRN shortness of breath or wheezing #90 mL 10/01/22 levofloxacin 750 mg tablet 750 mg PO DAILY #7 tabs 10/01/22 potassium chloride 20 mEq tablet,extended release(part/cryst) (Klor-Con M) 20 meq PO BIDCM #60 tabs 10/01/22 sodium chloride 0.65 % nasal spray aerosol (Deep Sea Nasal) 2 spray NASAL TID PRN PRN NASAL DRYNESS #44 mL 10/01/22 The patient's discharge medication list was reviewed for discrepancies and discrepancies were resolved.
[2022-10-01] MEDS: 0.9% Saline Lock 10 ML Syringe IV (16:06)
== END 2022-10-01 16:26 | disposition home or self-care (01) | DRG 871 ==
LOC: ED 14:32 → ICU 19:04 → PCU 09-29 07:12
PROVIDERS: Admitting Provider Internal Medicine; Emergency Provider Emergency Medicine; PCP Family Medicine; Visit Provider Internal Medicine
DX: A41.51 Sepsis due to Escherichia coli [E. coli] (principal); J69.0 Pneumonitis due to inhalation of food and vomit; J96.01 Acute respiratory failure with hypoxia; R65.21 Severe sepsis with septic shock; D61.810 Antineoplastic chemotherapy induced pancytopenia; N17.9 Acute kidney failure, unspecified; C83.30 Diffuse large B-cell lymphoma, unspecified site; A41.59 Other Gram-negative sepsis; R19.7 Diarrhea, unspecified; R11.2 Nausea with vomiting, unspecified; E87.6 Hypokalemia; T45.1X5A Adverse effect of antineoplastic and immunosuppressive drugs, initial encounter; R50.81 Fever presenting with conditions classified elsewhere; R51.9 Headache, unspecified; Z79.899 Other long term (current) drug therapy
CPT/HCPCS: 36415; 36600; 51702; 71045; 71046; 74177; 80048; 80053; 80202; 81001; 82803; 83605; 83735; 84100; 84484; 85025; 85610; 85730; 87040; 87070; 87077; 87086; 87186; 87205; 87428; 87449; 93005; 94640; 94660; 94668; 97110; 97116; 97162; 97166; 97530; 97535; 97802; 99252; 99285; J7030; J7040; J7050; Q9967; A4216; G0463; J1447; J1940

== ENCOUNTER → 2022-10-08 | Outpatient (CLI) | payer SELFPAY, OTHER ==
--- NOTE | 2022-10-08 10:58 | ECHOD_ITS ---
Reason For Study: Diffuse large B-cell lymphoma of intra-abdominal lymph nodes. Procedure This was a 2D Doppler, Color Flow transthoracic echocardiogram. Myocardial strain analysis was performed in this exam to aid in the assessment of cardiac function. Exam performed in department. Left Ventricle Normal LV size. Left ventricular systolic function is normal. The estimated ejection fraction is 55 %. No regional wall motion abnormalities noted. Right Ventricle Normal RV size. Normal systolic function. Atria Normal left atrium. Normal right atrium. Mitral Valve Normal mitral valve. Tricuspid Valve Normal tricuspid valve. Aortic Valve Normal aortic valve. Trisinus/trileaflet aortic valve. Pulmonic Valve Normal pulmonic valve. Great Vessels Normal aortic root. The pulmonary artery is normal size. Normal inferior vena cava. Pericardium/Pleural No pericardial effusion. MMode/2D Measurements & Calculations LVIDd: 4.7 cm IVSd: 1.4 cm Ao root diam: 3.6 cm LVIDs: 3.4 cm LVPWd: 1.3 cm RVDd: 3.2 cm FS: 28.2 % LAV(MOD-bp): 71.6 ml LVAd ap4: 34.1 cm2 SV(MOD-sp4): 71.0 ml LAV(MOD-bp) Indexed: 33.8 ml/m2 LVLd ap4: 9.0 cm LAV(MOD-sp2): 76.9 ml EDV(MOD-sp4): 107.2 ml LAV(MOD-sp4): 68.9 ml EDV(sp4-el): 109.6 ml LVAs ap4: 17.3 cm2 LVLs ap4: 7.0 cm ESV(MOD-sp4): 36.2 ml ESV(sp4-el): 36.0 ml EF(MOD-sp4): 66.2 % EF(sp4-el): 67.2 % SV(sp4-el): 73.6 ml LA A4 area: 21.5 cm2 LA dimension(2D): 3.8 cm RA A4 area: 14.8 cm2 Time Measurements MV dec time: 0.21 sec Doppler Measurements & Calculations MV E max kishan: 66.5 cm/sec Lat Peak E' Kishan: 9.8 cm/sec Med Peak E' Kishan: 6.9 cm/sec MV A max kishan: 56.7 cm/sec E/E' lat: 6.8 E/E' med: 9.6 MV E/A: 1.2 MV V2 max: 64.9 cm/sec Ao V2 max: 152.0 cm/sec MV max P.7 mmHg MV dec slope: 322.0 cm/sec2 Ao max P.2 mmHg MV V2 mean: 46.1 cm/sec Ao V2 mean: 106.6 cm/sec MV mean P.93 mmHg Ao mean P.2 mmHg MV V2 VTI: 21.2 cm Ao V2 VTI: 27.7 cm AV (velocity ratio): 0.84 LV V1 max: 131.1 cm/sec PA V2 max: 136.3 cm/sec LV V1 max P.9 mmHg PA V2 mean: 89.7 cm/sec LV V1 mean P.8 mmHg LV V1 mean: 91.1 cm/sec LV V1 VTI: 23.3 cm ECHO/Echo Complete Interpretation Summary Normal LV size. Left ventricular systolic function is normal. The estimated ejection fraction is 55 %. The global longitudinal strain is normal. The global longitudinal strain = -18. 2 % (normal). Ordering Physician: Jacek Esteves Referring Physician: Jacek Esteves Performed By: Yael Renteria RCS
== END | disposition home or self-care (01) ==
PROVIDERS: PCP Family Medicine; Referring Provider Internal Medicine Hematology & Oncology; Visit Provider Internal Medicine Hematology & Oncology
DX: C83.33 Diffuse large B-cell lymphoma, intra-abdominal lymph nodes (principal); Z51.81 Encounter for therapeutic drug level monitoring; Z79.899 Other long term (current) drug therapy
CPT/HCPCS: 93306

== ENCOUNTER → 2022-11-16 | Outpatient (CLI) | payer SELFPAY, OTHER ==
--- NOTE | 2022-11-17 05:30 | PFTCOMP_ITS ---
COMPLETE PULMONARY FUNCTION TEST INTERPRETATION Brief HPI: Patient is a 52-year-old male, currently under the care of myself, who presents to [facility] for complete pulmonary function tests secondary to diagnosis of abnormal CT scan. Respiratory therapist reports good effort and reproducible results. Interpretation: Forced expiration spirometry shows no large airways obstructive ventilatory defect with an FEV1 of 104% predicted. There is no significant bronchodilator response by strict ATS criteria. Spirograms are of good quality and plateau normally. The respiratory flow volume loop shows a normal pattern. Lung volumes by body plethysmography show a normal total lung capacity at 6.9 L, 91% predicted. All other lung volumes are within normal limits. Diffusion capacity by carbon monoxide is at the lower limit of normal at 75% predicted. The airway resistance is normal. No previous pulmonary function tests were available for review. Impression: Grossly normal pulmonary function test, but lung volumes and DLCO are at the lower limit of normal, possibly indicating early versus resolving disease.
== END | disposition home or self-care (01) ==
LOC: PSN 13:09
PROVIDERS: PCP Family Medicine; Referring Provider Internal Medicine Critical Care Medicine; Visit Provider Internal Medicine Critical Care Medicine
DX: R91.8 Other nonspecific abnormal finding of lung field (principal)
CPT/HCPCS: 94060; 94726; 94729

== ENCOUNTER → 2022-11-17 | Outpatient (CLI) | payer SELFPAY, OTHER ==
--- NOTE | 2022-11-17 08:30 | PET_ITS ---
EXAMINATION: FDG PET-CT INDICATIONS: A 52-year-old male with history of lymphoma presenting for restaging examination. COMPARISON EXAMINATION: None available TECHNIQUE: Following the intravenous administration of 12.88 mCi of F-18 deoxyglucose via the right antecubital fossa, multiplanar image acquisitions of the neck, chest, abdomen and pelvis to level of mid thigh, obtained at one hour post radiopharmaceutical administration contemporaneously interpreted with the current CT of the neck, chest, abdomen and pelvis, to level of mid thigh, dated 11/17/22 via coregistration reveals: BLOOD GLUCOSE LEVEL:?? 130 mg/dl?HEIGHT:?73 inches?WEIGHT: 204 lbs. FINDINGS: Head/Neck: There is no evidence of abnormal increased glucose metabolism in the pharyngeal mucosal space, parapharyngeal space, bilateral-lateral and anterior neck, hypopharynx and distribution of the laryngeal structures. The visualized portion of the cerebral cortical-subcortical structures demonstrate symmetric and preserved glucose metabolism. CHEST: There is no quantitative scintigraphic evidence of abnormal increased glucose metabolism within the context of the bilateral hemithorax pulmonary parenchyma, right and left hemithorax pleural interface, mediastinal structures and right-left thoracic perihilum. Prominent radiopharmaceutical concentration is identified in the left ventricular myocardium commensurate with the [place]. Pertinent chest CT findings are as follows. Angus-cath placement is noted. Bilateral axillary soft tissue densities with fatty hilus are ametabolic. Scattered mediastinal soft tissue reveals no evidence of increased tracer uptake. There are no parenchymal densities-nodules defined in the right and left hemithorax with quantitatively significant increased FDG uptake. An infiltrative density defined in the right lower anterior lung zone is ametabolic. Mild bronchiectatic changes are defined bilaterally. Abdomen/Pelvis: Normal physiologic distribution of the radiopharmaceutical is apparent in the hepatic and splenic parenchyma, both renal units, bladder and visualized intestinal tract. Pertinent abdomen and pelvis CT findings are as follows. Right and left inguinal soft tissue densities are ametabolic. Subcentimeter retroperitoneal soft tissue is ametabolic. Skeletal: There is homogenous enhanced glucose concentration evidenced in the visualized appendicular and axial skeletal structures. PET/PET/CT Tumor Base -Thigh Subs IMPRESSION: 1. NEGATIVE EXAMINATION. There is no definitive scintigraphic evidence of recurrent viable neoplastic disease. 2. The uniform distribution of radiopharmaceutical apparent in the axial skeletal structures and symmetrically defined in the visualized appendicular skeleton may be secondary to chemotherapeutic intervention. (Sinan et al, Journal of Clinical Oncology 16:173, 1998). Alternatively, the findings may represent hyperplasia of the hematopoietic marrow. (Mary, AJR 180:669, 2003). Electronic Signature Alejo Cobos D.O. Accurate Quantification of SUVs and standardized [place] scores specific to lymphoma FDG PET-CT study interpretation for this report are calculated using the exclusive [employer]. (U.S. Patent No. [phone] [phone] B2 [phone] [place] patent [phone]). Standardization and correction of the FDG SUV metric via ACCUQUAN technology allow for vendor non-specific objective quantitative examination comparison and optimization of the sensitivity and specificity of the FDG PET-CT examination. Electronically Signed: Alejo Cobos, at 22:34 EDT ,
== END | disposition home or self-care (01) ==
PROVIDERS: PCP Family Medicine; Referring Provider Specialist; Visit Provider Specialist
DX: C83.30 Diffuse large B-cell lymphoma, unspecified site (principal)
CPT/HCPCS: 78815; A9552

== ENCOUNTER → 2022-11-23 | Outpatient (CLI) | payer SELFPAY, OTHER ==
--- NOTE | 2022-11-23 14:42 | CT_ITS ---
EXAM: CT CHEST WITHOUT INTRAVENOUS CONTRAST CLINICAL INDICATION: F/U Tree and bud TECHNIQUE: Helically acquired images were obtained of the chest without intravenous contrast. This CT exam was performed using one or more of the following dose reduction techniques: automated exposure control, adjustment of the mA and/or kV according to patient size, and/or use of iterative reconstruction technique. RADIATION DOSE: Total DLP: 367.44 mGy-cm. COMPARISON: Chest radiographs of 09/28/2022 which showed bilateral lower lobe radiographs. PET scan of 11/17/2022. Abdominal pelvic CT of 09/25/2022. FINDINGS: LUNGS AND PLEURAL SPACES: Biapical pleural parenchymal scarring is present. There is mild parenchymal scarring with minimal traction bronchiectasis within the right middle lobe, along the medial aspect of the right hemidiaphragm; this density was ametabolic on prior PET scan. The bilateral airspace disease seen on the prior CT of 09/25/2022 has resolved. No pulmonary parenchymal nodules are identified. No definite tree-in-bud opacities are seen to indicate developing pneumonia or aspiration pneumonitis. No pleural effusion. No pneumothorax. HEART: No coronary artery calcification is visualized. No significant pericardial effusion. MEDIASTINUM: No mediastinal adenopathy. THYROID: Unremarkable. No thyroid lesions. BONES/JOINTS: Lower cervical degenerative disc disease. Degenerative narrowing of the mid to lower thoracic disc spaces with marginal osteophytes and vacuum disc phenomenon. No lytic or blastic osseous lesion. VASCULATURE: Thoracic aorta is normal in caliber. UPPER ABDOMEN: Spleen remains enlarged measuring 16.1 cm in AP diameter, unchanged as compared to CT of 09/25/2022. Visualized portions of the liver, pancreas, adrenal glands and renal upper poles are unremarkable. Gallbladder is absent. No biliary ductal dilatation is noted. No gastric mural thickening or pneumoperitoneum is seen. TUBES, LINES AND DEVICES: Chemotherapy infusion port remains in place. OTHER: No retrocrural or axillary adenopathy is identified. CT/Chest without Contrast IMPRESSION: Interval resolution of the bilateral pulmonary airspace disease since the prior abdominal pelvic CT of 09/25/2022. No acute pulmonary infiltrates. No mediastinal adenopathy. Stable prominent spleen which measures 16.1 cm in AP diameter. Electronically Signed: Ismael Flores MD at 2:57 EDT ,
== END | disposition home or self-care (01) ==
LOC: CT 14:41
PROVIDERS: PCP Family Medicine; Referring Provider Internal Medicine Critical Care Medicine; Visit Provider Internal Medicine Critical Care Medicine
DX: R91.8 Other nonspecific abnormal finding of lung field (principal)
CPT/HCPCS: 71250

== ENCOUNTER 2023-07-01 16:56 | Emergency (ER) | payer OTHER, SELFPAY ==
[2023-07-01 16:59] VITALS: BP 157/91; PULSE 82; RESP 22; TEMP 36.8; O2SAT 100; BMI 28.9
--- NOTE | 2023-07-01 17:15 | CT_ITS ---
STUDY: CT ABDOMEN AND PELVIS WITHOUT CONTRAST REASON FOR EXAM: Male, 53 years old. Kidney Stone RADIATION DOSAGE (If Supplied By Facility): CTDIvol = ( 9.54 ) mGy, DLP = ( 538.58 ) mGycm TECHNIQUE: Transaxial images were obtained from the dome of the diaphragm to the symphysis pubis without oral contrast, and without intravenous contrast. Sagittal and coronal images were reconstructed. Individualized dose optimization techniques were used for this CT. COMPARISON: None. FINDINGS: The visualized lung bases are unremarkable. The visualized portions of the heart are within normal limits. Normal liver. Nonvisualization of the gallbladder. No significant dilatation of the extrahepatic biliary system. Normal spleen. Normal pancreas. There is a area of ill-defined soft tissue density in the mid abdominal mesentery estimated at 6 x 4 cm requiring further evaluation. Normal bilateral adrenal glands. Normal right kidney. Hydronephrosis of the left kidney with perinephric stranding. Left hydroureter. Normal visualized stomach. Normal small intestine. Mild diverticulosis of the colon. The appendix is visualized and appears normal. Normal abdominal aorta. Normal inferior vena cava. Normal retroperitoneum. 4 mm stone at the left UVJ of the urinary bladder. Normal abdominal wall. Normal osseous structures. CT/Abdomen/Pelvis without Cont IMPRESSION: Left hydronephrosis and hydroureter with a stone obstructing at the left UVJ. There is a area of ill-defined soft tissue density in the mid abdominal mesentery estimated at 6 x 4 cm requiring further evaluation. Electronically Signed: Duran Perry DO at 18:14 EST ,
[2023-07-01] MEDS: 0.9% Normal Saline (1000mL) 1,000 ML 999 ML IV (17:16)
--- NOTE | 2023-07-01 17:18 | EDS_ITS ---
HPI <ESTRELLA Estevez - Last Filed: 07/01/23 20:50> History of Present Illness Chief Complaint: Abd Pain Narrative Narrative: Patient presenting today due to left lower quadrant abdominal pain that radiates to his left flank that started this afternoon. He reports that the pain is sharp and constant. He has had a few episodes of vomiting due to the pain. He did try to take oxycodone around 4:30 pm to see if that would relieve his pain and has had minimal relief. He reports that he has had decreased urination. He denies any history of kidney stones or diverticulitis. He denies any fevers, chills, dysuria, hematuria, and diarrhea. He has a history of bowel obstruction with surgery to remove part of his bowel. PMH includes lymphoma. PFSH <ESTRELLA Estevez - Last Filed: 07/01/23 20:50> PFSH Medical History Lymphoma Home Medications acyclovir 400 mg tablet 400 mg PO Q12H 07/01/23 [History Last Taken Unknown] cholecalciferol (vitamin D3) 50 mcg (2,000 unit) capsule 50 mcg PO DAILY 07/01/23 [History Last Taken Unknown] ferrous sulfate 325 mg (65 mg iron) tablet (Feosol) 325 mg PO DAILY 07/01/23 [History Last Taken Unknown] ondansetron 4 mg disintegrating tablet 4 mg PO Q8H PRN PRN Nausea #7 tabs 07/01/23 [Rx Last Taken Unknown] oxycodone-acetaminophen 5 mg-325 mg tablet (Percocet) 1 tab PO Q8H PRN pain 3 days #10 tabs 07/01/23 [Rx Last Taken Unknown] tamsulosin 0.4 mg capsule 0.4 mg PO DAILY #5 CAPSULES 07/01/23 [Rx Last Taken Unknown] turmeric 400 mg capsule 400 mg PO DAILY 07/01/23 [History Last Taken Unknown] Allergy/AdvReac Type Severity Reaction Status Date / Time No Known Allergies Allergy Verified 07/01/23 16:59 Family History Mother Cancer LUNG Social History Smoking Status: Never smoker ROS <ESTRELLA Estevez - Last Filed: 07/01/23 20:50> ROS ED Constitutional Constitutional ED: Denies chills or fever(s) Cardiovascular Cardiovascular: Denies chest pain Respiratory/Chest Respiratory/Chest: Denies cough or dyspnea Gastrointestinal Gastrointestinal: Reports abdominal pain, nausea and vomiting; Denies constipation or diarrhea Genitourinary Genitourinary ED: Reports other Details: Decreased urinary frequency ; Denies dysuria or hematuria Musculoskeletal Musculoskeletal: Reports back pain Integumentary Denies rash Neurologic Neurologic: Denies weakness EXAM <ESTRELLA Estevez - Last Filed: 07/01/23 20:50> Physical Exam Const Vital Signs: 07/01/23 16:59 Temperature 98.2 F Temperature Source Temporal Pulse Rate 82 Respiratory Rate 22 H Blood Pressure 157/91 H Blood Pressure Mean 113 Pulse Ox 100 Oxygen Delivery Method Room Air Positive well nourished, well developed and no apparent distress General Appearance ED: well developed HEENT Reports normocephalic and head/scalp atraumatic Mouth ED: Yes moist mucous membranes normal Eyes PERRL and EOMs intact bilaterally Neck full ROM and supple Chest Wall inspection of chest normal Resp normal respiratory effort and clear to auscultation bilaterally Cardio regular rate and regular rhythm GI soft to palpation, non-tender, non-distended and no masses Back/Spine no CVA tenderness Cervical Spine: cervical ROM normal Lumbar Spine / Lower Back: normal to inspection Extremity normal to inspection and full ROM Neuro oriented x3, CN's II-XII intact bilaterally, moves all extremities, no focal motor deficits and no sensory deficits noted Sensorium / Orientation: awake and alert Psych mental status grossly normal and thought process normal Skin no rashes or lesions noted and no wounds <Dr. Alireza Wolf, DO - Last Filed: 07/01/23 20:54> Physical Exam Const Vital Signs: 07/01/23 16:59 Temperature 98.2 F Temperature Source Temporal Pulse Rate 82 Respiratory Rate 22 H Blood Pressure 157/91 H Blood Pressure Mean 113 Pulse Ox 100 Oxygen Delivery Method Room Air MDM <ESTRELLA Estevez - Last Filed: 07/01/23 20:50> MDM MDM Narrative Medical decision making narrative: Patient presenting with left lower quadrant abdominal pain that radiates to his groin and left flank. No history of kidney stones. Pain is sharp and constant, he does appear uncomfortable. He does not have any tenderness to his abdomen on exam. He will be given IV fluids and analgesia. CT of the abdomen pelvis without contrast will be obtained to rule out kidney stone, diverticulitis, bowel obstruction, and other etiology. Labs will be obtained to rule out leukocytosis, anemia, electrolyte abnormality, CALIXTO, and UTI. CT scan does show a 4 mm left-sided kidney stone at the UVJ. There is also a mass noted in the mesentery, patient reports that this mass is known is being followed. He repor ts improvement of his symptoms on reexamination and reports that his pain is completely gone. I will give him a prescription for Percocet, Flomax, and Zofran to use as needed. Have encouraged that he follow-up with his PCP, he has been given return instructions and will be discharged home in stable condition. He is comfortable with plan. 53-year-old male presenting with acute onset left flank pain. He also complains of dysuria mostly at the end of his urine stream. No history of kidney stones. Patient does have recent history of bowel resection in April. He states he had a mass and a partial small bowel obstruction. He states he went through chemotherapy and radiation therapy. He was prior to surgery. Patient medicated with morphine and Zofran. He is given a liter normal saline. He was also given Toradol. Urinalysis shows occult blood without evidence of infection. Patient currently pain-free after treatment. CBC shows normal white blood cell count of 4.6 and hemoglobin 12.9. Will obtain CT abdomen pelvis without contrast and BMP. Lab Data Attestation: I reviewed the patient's lab results. Lab results narrative: H&H 12.9 and 35.8, platelet count 113, BUN 20 Labs: Laboratory Results - last 24 hr 07/01/23 07/01/23 17:30 17:40 WBC 4.6 RBC 4.13 L Hgb 12.9 L Hct 35.8 L MCV 86.7 MCH 31.2 MCHC 36.0 RDW Std Deviation 40.9 RDW Coeff of Oles[place] 13.1 Plt Count 113 L MPV 9.2 Immature Gran % (Auto) 0.700 Neut % (Auto) 75.6 H Lymph % (Auto) 9.8 L [place] % (Auto) 13.3 H Eos % (Auto) 0.2 Baso % (Auto) 0.4 Absolute Neuts (auto) 3.5 Absolute Lymphs (auto) 0.45 L Nucleated RBC % 0 Differential Comment SEE COMMENT Platelet Estimate SLT DEC RBC Morphology N CHROM Anisocytosis RARE Sodium 142 Potassium 3.7 Chloride 114 H Carbon Dioxide 22.0 Anion Gap 6 BUN 20 H Creatinine 1.29 Estim Creat Clear Calc 82.19 Est GFR (MDRD) Af Amer 75 Est GFR (MDRD) Non-Af 62 BUN/Creatinine Ratio 15.5 Glucose 112 H Calcium 9.5 Urine Color Yellow Urine Clarity Clear Urine pH 7.0 Ur Specific [place] 1.015 Urine Protein 15 H Urine Glucose (UA) Normal Urine Ketones 5 H Urine Occult Blood 150 H Urine Nitrite Negative Urine Bilirubin Negative Urine Urobilinogen Normal Ur Leukocyte Esterase Negative Urine RBC 0 SEEN Urine WBC 0 SEEN Ur Squamous Epith Cells 0 SEEN Urine Bacteria 0 SEEN Urine Mucus 0 SEEN Radiography Diagnostic Testing: Clinical Impression(s) from Imaging Studies Abdomen/Pelvis CT 07/01/23 17:15 IMPRESSION: Left hydronephrosis and hydroureter with a stone obstructing at the left UVJ. There is a area of ill-defined soft tissue density in the mid abdominal mesentery estimated at 6 x 4 cm requiring further evaluation. Electronically Signed: Duran Perry DO at 18:14 EST Reading Location ID and State: [facility] / [place] Tel [phone], Service support , <Dr. Alireza Wolf DO - Last Filed: 07/01/23 20:54> [facility] Narrative Medical decision making narrative: Patient presenting with left lower quadrant abdominal pain that radiates to his groin and left flank. No history of kidney stones. Pain is sharp and constant, he does appear uncomfortable. He does not have any tenderness to his abdomen on exam. He will be given IV fluids and analgesia. CT of the abdomen pelvis without contrast will be obtained to rule out kidney stone, diverticulitis, bowel obstruction, and other etiology. Labs will be obtained to rule out leukocytosis, anemia, electrolyte abnormality, CALIXTO, and UTI. CT scan does show a 4 mm left-sided kidney stone at the UVJ. There is also a mass noted in the mesentery, patient reports that this mass is known is being followed. He reports improvement of his symptoms on reexamination and reports that his pain is completely gone. I will give him a prescription for Percocet, Flomax, and Zofran to use as needed. Have encouraged that he follow-up with his PCP, he has been given return instructions and will be discharged home in stable condition. He is comfortable with plan. 53-year-old male presenting with acute onset left flank pain. He also complains of dysuria mostly at the end of his urine stream. No history of kidney stones. Patient does have recent history of bowel resection in April. He states he had a mass and a partial small bowel obstruction. He states he went through chemotherapy and radiation therapy. He was prior to surgery. Patient medicated with morphine and Zofran. He is given a liter normal saline. He was also given Toradol. Urinalysis shows occult blood without evidence of infection. Patient currently pain-free after treatment. CBC shows normal white blood cell count of 4.6 and hemoglobin 12.9. Will obtain CT abdomen pelvis without contrast and BMP. BMP shows normal renal function and electrolytes. Patient on reevaluation is pain-free. He will be given follow-up with urology and pain medications for home. Options were discussed. Lab Data Labs: Laboratory Results - last 24 hr 07/01/23 07/01/23 17:30 17:40 WBC 4.6 RBC 4.13 L Hgb 12.9 L Hct 35.8 L MCV 86.7 MCH 31.2 MCHC 36.0 RDW Std Deviation 40.9 RDW Coeff of [place]les[place] 13.1 Plt Count 113 L MPV 9.2 Immature Gran % (Auto) 0.700 Neut % (Auto) 75.6 H Lymph % (Auto) 9.8 L [place] % (Auto) 13.3 H Eos % (Auto) 0.2 Baso % (Auto) 0.4 Absolute Neuts (auto) 3.5 Absolute Lymphs (auto) 0.45 L Nucleated RBC % 0 Differential Comment SEE COMMENT Platelet Estimate SLT DEC RBC Morphology N CHROM Anisocytosis RARE Sodium 142 Potassium 3.7 Chloride 114 H Carbon Dioxide 22.0 Anion Gap 6 BUN 20 H Creatinine 1.29 Estim Creat Clear Calc 82.19 Est GFR (MDRD) Af Amer 75 Est GFR (MDRD) Non-Af 62 BUN/Creatinine Ratio 15.5 Glucose 112 H Calcium 9.5 Urine Color Yellow Urine Clarity Clear Urine pH 7.0 Ur Specific [place] 1.015 Urine Protein 15 H Urine Glucose (UA) Normal Urine Ketones 5 H Urine Occult Blood 150 H Urine Nitrite Negative Urine Bilirubin Negative Urine Urobilinogen Normal Ur Leukocyte Esterase Negative Urine RBC 0 SEEN Urine WBC 0 SEEN Ur Squamous Epith Cells 0 SEEN Urine Bacteria 0 SEEN Urine Mucus 0 SEEN Radiography Diagnostic Testing: Clinical Impression(s) from Imaging Studies Abdomen/Pelvis CT 07/01/23 17:15 IMPRESSION: Left hydronephrosis and hydroureter with a stone obstructing at the left UVJ. There is a area of ill-defined soft tissue density in the mid abdominal mesentery estimated at 6 x 4 cm requiring further evaluation. Electronically Signed: Duran Perry DO at 18:14 EST Reading Location ID and State: [facility] / [place] Tel [phone], Service support , Discharge Plan Triage Chief Complaint: Abd Pain Other Complaint: Flank Pain ED Midlevel Provider: Heike Haddad ED Provider: Alireza Wolf Dx/Rx/DC Orders Clinical Impression: Kidney stone on left side Instructions: ED Kidney Stone with Pain Prescriptions: New oxycodone-acetaminophen [Percocet] 5-325 mg tablet 1 tab PO Q8H PRN (Reason: pain) 3 Days Qty: 10 0RF tamsulosin 0.4 mg capsule 0.4 mg PO DAILY Qty: 5 0RF ondansetron 4 mg tablet,disintegrating 4 mg PO Q8H PRN PRN (Reason: Nausea) Qty: 7 0RF No Action acyclovir 400 mg tablet 400 mg PO Q12H Patient Comments: TAKE 1 TABLET BY MOUTH TWICE DAILY ferrous sulfate [Feosol] 325 mg (65 mg iron) tablet 325 mg PO DAILY turmeric 400 mg capsule 400 mg PO DAILY cholecalciferol (vitamin D3) 50 mcg (2,000 unit) capsule 50 mcg PO DAILY Primary Care Provider: Cricket Babcock Referrals: Cricket Babcock MD [Primary Care Provider] - 3-5 Days Activity Restrictions/Additional Instructions: Please follow-up with your PCP and return for any worsening of your symptoms. Disposition Disposition: Home, Self Care
[2023-07-01] MEDS: Morphine 4 MG/ML Syringe IV (17:20)
[2023-07-01] MEDS: Ketorolac 15 MG/ML Vial IV (17:20)
[2023-07-01] MEDS: Ondansetron 4 MG/2 ML Vial IV (17:20)
[2023-07-01 17:40] LABS: Bacteria 0 SEEN /hpf (None Seen); Mucous, Urine 0 SEEN /hpf (<or=2+); Red Blood Cells-Urine 0 SEEN /hpf (0-5); Squamous Epithelial Cells - UA 0 SEEN /hpf (0-5); White Blood Cells 0 SEEN /hpf (0-5)
[2023-07-01 17:52] LABS: Absolute Lymphocyte Count 0.45 X10^3/uL (0.83-4.51); Absolute Neutrophil Count 3.5 X10^3/uL (2.0-7.7); Basophil# 0.02 X10^3/uL; Basophil% 0.4 % (0-1); Eosinophil# 0.01 X10^3/uL; Eosinophils% 0.2 % (0-5); Hematocrit 35.8 % (40-54); Hemoglobin 12.9 g/dL (13.0-16.5); Lymphocyte # 0.45 X10^3/ul (0.83-4.51); Lymphocyte % 9.8 % (19-41); Mean Corpuscular Hgb 31.2 pg (27.0-32.0); Mean Corpuscular Volume 86.7 fL (80-94); Mean Platelet Vol. 9.2 fl (6.2-12.0); Monocyte# 0.61 X10^3/uL; Monocyte% 13.3 % (0-10); NRBC Flagged by Analyzer 0 % (0-5); Neutrophil # 3.48 X10^3/uL (2.7-7.7); Neutrophil % 75.6 % (47-70); POSITIVE DIFFERENTIAL YES; Platelet Count 113 K/mm3 (150-450); RBC Distribution Width CV 13.1 % (11.6-14.6); RBC Distribution Width SD 40.9 fl (35.1-43.9); Red Blood Count 4.13 M/mm3 (4.6-6.2); White Blood Count 4.6 K/mm3 (4.4-11.0)
[2023-07-01 17:52] LABS: Color, Urine Yellow (Yellow); Glucose, Dipstick Normal (Normal); Ketone-Dipstick 5 mg/dl (Negative); Leukocyte Esterase-Dipstick Negative /ul (Negative); Nitrite-Dipstick Negative (Negative); Occult Blood-Urine 150 /ul (Negative); Protein-Dipstick 15 mg/dl (Negative); Specific Gravity, Urine 1.015 (1.002-1.030); Urine Bilirubin Dipstick Negative (Negative); Urine Clarity Clear (Clear); Urine Urobilinogen Normal (Normal)
[2023-07-01 17:54] LABS: Differential Indicated SCAN CRITERIA MET
[2023-07-01 18:07] LABS: Anion Gap 6 (5-15); BUN 20 mg/dL (7-18); BUN/Creat Ratio 15.5 RATIO (10-20); Calcium,Total 9.5 mg/dL (8.5-10.1); Chloride 114 mmol/L (98-107); Creatinine, Serum 1.29 mg/dL (0.70-1.30); EST Glomerular Filtration Rate 62 mL/min (>60); Est Glom Filt Rate - Afr Amer 75 mL/min (>60); Estimated Creatinine Clearance 82.19 ml/min; Glucose 112 mg/dL (74-106); Potassium 3.7 mmol/L (3.5-5.1); Sodium Level 142 mmol/L (136-145)
[2023-07-01 18:11] LABS: Anisocytosis RARE; Platelet Estimate SLT DEC (ADEQ); Red Cell Morphology N CHROM NORMAL (NORM C&C)
[2023-07-01 21:11] VITALS: BP 132/81; PULSE 87; RESP 16; TEMP 36.6; O2SAT 97
[2023-07-01 21:12] VITALS: BP 132/81; PULSE 87; RESP 16; TEMP 36.6; O2SAT 97
== END 2023-07-01 21:28 | disposition home or self-care (01) ==
PROVIDERS: Physician Assistant; Emergency Provider Student in an Organized Health Care Education/Training Program; PCP Family Medicine; Visit Provider Student in an Organized Health Care Education/Training Program
DX: N13.2 Hydronephrosis with renal and ureteral calculous obstruction (principal)
CPT/HCPCS: 74176; 80048; 81001; 85025; 96361; 96374; 96375; 99284; J7030; A4216; J2405

== ENCOUNTER → 2024-08-25 | Outpatient (CLI) | payer OTHER, SELFPAY ==
--- NOTE | 2024-08-25 07:17 | US_ITS ---
PROCEDURE: ABD LIMITED W/ ELASTOGRAPHY REASON FOR EXAM: DILI, LIVER FIBROSIS, DIFFUSE LARGE CELL LYMPHOMA COMPARISON: None. TECHNIQUE: Right upper quadrant abdominal ultrasound. Maddie ElastQ Imaging shear wave elastography for non-invasive assessment of liver tissue stiffness. Maddie EPIQ Elite. FINDINGS: LIVER: Size: Upper limits of normal. Length: 17.6 cm Echotexture: Diffusely echogenic suggesting fatty infiltration Contour: Normal Lesions: None identified Elastography: EQI Med: 9 kPa EQI Med Kishan: 1.73 m/s IQR/Med: 18 %* GALLBLADDER: Surgically absent. COMMON BILE DUCT: Dilated measuring up to 8 mm. This is normal for the post cholecystectomy state. . PANCREAS: Visualized portions are sonographically unremarkable. Visualized portions of the right kidney are unremarkable. No right upper quadrant ascites. The spleen measures 12.6 cm 6.3 cm x 5.2 cm. US/ABD Limited w/ Elastography IMPRESSION: MODERATE HEPATIC FIBROSIS F2/F3 Fatty infiltration of the liver. Status post cholecystectomy. Reference Values: SRU <1.37 m/s (5.7kPa): No to mild fibrosis 1.37 m/s - 2.2 m/s: Moderate to severe fibrosis >2.2 m/s (15kPa): Significant fibrosis / cirrhosis METAVIR Score F2 or higher: 1.34 m/s (5.7kPa) F3 or higher: 1.55 m/s (7.3kPa) F4: 1.80 m/s (10kPa) * If the IQR/Med is >30%, the variance in the measurements is a large and the a ccuracy of the measurement may be in question. Reading Location: [place] [id number]
== END | disposition home or self-care (01) ==
LOC: US 07:16
PROVIDERS: PCP Family Medicine; Referring Provider Internal Medicine; Visit Provider Internal Medicine
DX: R74.02 Elevation of levels of lactic acid dehydrogenase [LDH] (principal); C85.90 Non-Hodgkin lymphoma, unspecified, unspecified site; R79.89 Other specified abnormal findings of blood chemistry
CPT/HCPCS: 76705; 76981